=== PATIENT | female | born 1980 | race Caucasian/White ===

== ENCOUNTER 2016-09-06 17:48 | Emergency (ER) | payer MEDICAID, OTHER ==
[2016-09-06] MEDS ORDERED: Ketorolac INJ* 30 MG/ML 1 ML VIAL IV PUSH ONE (18:22)
[2016-09-06] MEDS ORDERED: Dexamethasone IV* 4 MG/ML 1 ML (4 MG) IV SLOW PU ONE (18:23)
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
--- NOTE | 2016-09-06 18:52 | RAD ---
INDICATION: Left flank pain COMPARISON: Renal stone CT November 03, 2014 TECHNIQUE: Noncontrast axial source images were acquired from the level hemidiaphragms to the symphysis pubis as part of CT imaging for renal stone. Lung bases: The lung bases are clear. Liver: The liver is normal in size. Noncontrast imaging shows no evidence of a new hepatic mass or ductal dilatation. There is decreased attenuation near the falciform ligament appearing unchanged and most consistent with focal fatty infiltration. Gallbladder: There are no calcified gallstones. There is no evidence of wall thickening or pericholecystic fluid.. Spleen: The spleen is normal in size. The noncontrast CT appearance is normal. Pancreas: Noncontrast imaging shows no pancreatic mass or ductal dilitation. Adrenal glands: No masses are identified. Kidneys/Bladder: There are nonobstructive lower pole right renal calculi appearing unchanged. There are no additional calculi of urinary significance. Adenopathy: There is no evidence of intraperitoneal or retroperitoneal adenopathy. Evaluation is limited without oral contrast. Fluid collections: There are no free or localized fluid collections. Vessels: The aorta and iliac vessels are normal in caliber. There are no significant atherosclerotic changes. The IVC appears normal Pelvic organs: The uterus is unremarkable. No adnexal mass. The right uterine clip appears unchanged. The left uterine clip is now in the lower right pelvis. GI tract: Evaluation of the bowel is limited without oral contrast. The stomach, small bowel, and lower GI tract appear grossly normal. There are no obstructive findings. The appendix is visualized and appears normal. Soft tissues: No soft tissue abnormalities of the extraperitoneal abdomen or pelvis are identified. Osseous structures: There are no acute osseous findings. IMPRESSION: 1. Suspected focal fatty infiltration. A segment left hepatic lobe, unchanged. 2. No obstructive right-sided nephrolithiasis, unchanged 3. The left uterine clip appears to have migrated as it is now positioned in the caudal right pelvis. Findings called to the ED
[2016-09-06 19:45] LABS: Hematocrit 43 % (35-47); Hemoglobin 14.4 g/dl (12.0-16.0); Mean Corpuscular HGB Conc 34 g/dl (31-36); Mean Corpuscular Hemoglobin 30 pg (27-31); Mean Corpuscular Volume 91 fL (80-97); Mean Platelet Volume 8 um3 (7.4-10.4); Red Blood Count 4.74 10^6/ul (4.0-5.4); Red Cell Distribution Width 13 % (10.5-15); White Blood Count 9.5 10^3/ul (3.5-10.8)
[2016-09-06] MEDS ORDERED: predniSONE TAB* 5 MG PO ONE (19:57)
[2016-09-06 20:00] LABS: Albumin 4.8 g/dL (3.2-5.2); BUN/Creatinine Ratio 11.7 (8-20); EGFR African American 145.5 (>60); EGFR Non-African American 113.1 (>60); Globulin 3.3 g/dL (2-4); Potassium 3.6 mmol/L (3.5-5.0); Total Bilirubin 0.5 mg/dL (0.2-1.0); Total Protein 8.1 g/dL (6.4-8.9)
[2016-09-06] MEDS ORDERED: predniSONE TAB* 20 MG PO ONE (20:06)
[2016-09-06] MEDS ORDERED: Ibuprofen TAB* 600 MG PO ONE (20:06)
[2016-09-06 20:16] VITALS: BP 126/69
== END 2016-09-06 20:20 | disposition home or self-care (01) ==
LOC: ED 17:48
DX: J02.0 Streptococcal pharyngitis (principal); R07.0 Pain in throat; R13.10 Dysphagia, unspecified; F17.210 Nicotine dependence, cigarettes, uncomplicated; R53.1 Weakness; R50.9 Fever, unspecified
CPT/HCPCS: 36415; 74176; 80053; 85025; 87651; 99282; A9270-GY; J1100; J1885; J7512

== ENCOUNTER 2016-09-20 11:31 | Emergency (ER) | payer OTHER ==
[2016-09-20 11:54] VITALS: BP 108/56
[2016-09-20] MEDS ORDERED: Ketorolac INJ* 60 MG/2 ML VIAL IM ONE (12:22)
--- NOTE | 2016-09-20 13:13 | RAD ---
INDICATION: Sort throat. COMPARISON: There are no prior studies available for comparison. TECHNIQUE: A CT scan of the neck was performed without intravenous contrast. Contiguous axial sections were obtained from the skull base through the lung apices. Images were reconstructed in the coronal and sagittal planes. The study is limited without contrast. FINDINGS: The airway appears patent. No retropharyngeal soft tissue swelling is present. There is mild thickening of the epiglottis and aryepiglottic folds and mild swelling around the piriform sinuses. The tonsillar fossas appear within normal limits. No fluid collection or abscess is seen. No significant enlarged nodes are seen. The parotid and submandibular glands appear to be within normal limits. The thyroid gland appears normal. The lung apices appear clear. There are a couple small cysts present. The visualized portion of the paranasal sinuses and mastoid air cells appear clear. No significant focal osseous abnormality is seen. The results of this exam were discussed with the clinician. IMPRESSION: MILD SWELLING IN THE EPIGLOTTIS AND ARYEPIGLOTTIC FOLDS CONSISTENT WITH EPIGLOTTITIS.
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
[2016-09-20 13:33] LABS: Mono Internal Control QC Line Present
[2016-09-20 13:34] LABS: Manual Entry Verification JEA0012
[2016-09-20] MEDS ORDERED: Dexamethasone IV* 4 MG/ML 1 ML (4 MG) IV SLOW PU ONE (13:46)
[2016-09-20] MEDS ORDERED: cefTRIAXone VIAL(*) 1,000 MG VIAL IVPB ONE (13:47)
== END 2016-09-20 15:00 | disposition home or self-care (01) ==
LOC: ED 11:31
DX: J02.9 Acute pharyngitis, unspecified (principal)
CPT/HCPCS: 36415; 70490; 83605; 86308; 87651; 96372; 99282; J0696; J1100; J1885

== ENCOUNTER 2016-11-07 03:34 | Emergency (ER) | payer OTHER ==
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
[2016-11-07 05:45] VITALS: BP 106/63
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
== END 2016-11-07 05:40 | disposition home or self-care (01) ==
LOC: ED 03:34
DX: S00.83XA Contusion of other part of head, initial encounter (principal); S80.212A Abrasion, left knee, initial encounter; S80.211A Abrasion, right knee, initial encounter; Y00.XXXA Assault by blunt object, initial encounter; Y93.9 Activity, unspecified; Y92.9 Unspecified place or not applicable; Z88.5 Allergy status to narcotic agent; Z87.442 Personal history of urinary calculi; F41.9 Anxiety disorder, unspecified; F32.9 Major depressive disorder, single episode, unspecified; F17.210 Nicotine dependence, cigarettes, uncomplicated
CPT/HCPCS: 70486; 99282

== ENCOUNTER 2016-12-23 19:06 | Emergency (ER) | payer OTHER ==
[2016-12-23 19:22] VITALS: BP 109/51
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
--- NOTE | 2016-12-23 22:17 | ED ---
Upper Extremity Pain - History of Current Complaint Chief Complaint: EDExtremityUpper Stated Complaint: RT HAND INJURY Time Seen by Provider: 12/23/16 20:06 Hx Last Menstrual Period: 02/09 - Allergies/Home Medications Allergies/Adverse Reactions: Allergies Allergy/AdvReac Type Severity Reaction Status Date / Time Morphine Allergy Severe Swelling Verified 02/15/16 12:33 Propoxyphene Allergy Severe Rash And Verified 02/15/16 12:33 [From Darvocet-N] Itching Hydromorphone [From Dilaudid] Allergy swelling Verified 02/15/16 12:33 at iv site PMH/Surg Hx/FS Hx/Imm Hx Endocrine/Hematology History: Denies: Hx Anticoagulant Therapy, Hx Diabetes, Hx Thyroid Disease, Other Endocrine/Hematological Disorders Cardiovascular History: Reports: Other Cardiovascular Problems/Disorders - heart murmur as a child. Denies: Hx Hypertension Respiratory History: Reports: Other Respiratory Problems/Disorders - pleurisy Denies: Hx Asthma, Hx Chronic Obstructive Pulmonary Disease (COPD) GI History: Denies: Hx Ulcer, Other GI Disorders History: Reports: Hx Kidney Stones, Hx Renal Disease, Other Problems/ Disorders - Renal stents Musculoskeletal History: Reports: Hx Back Problems - reports pain in back along spine due to cysts Denies: Other Musculoskeletal History Sensory History: Reports: Hx Contacts or Glasses Denies: Other Sensory Impairments Opthamlomology History: Reports: Hx Contacts or Glasses Denies: Other Sensory Impairments Neurological History: Reports: Hx Migraine Denies: Hx Dementia, Other Neuro Impairments/Disorders Psychiatric History: Reports: Hx Anxiety, Hx Depression, Hx Community Mental Health Tx, Hx Bipolar Disorder, Hx of Violent Episodes Against Others, Hx Substance Abuse - amphetamine (crystal meth) Denies: Hx Eating Disorder, Other Psychiatric Issues/Disorders - Cancer History Cancer Type, Location and Year: n/a - Surgical History Surgery Procedure, Year, and Place: Kidney Stone surg; dermoid cysyt. [place] [facility] 09/2013. Tubal Ligation. Multiple Teeth Extracted Hx Anesthesia Reactions: No Infectious Disease History: No Infectious Disease History: Denies: Hx Hepatitis, Hx Human Immunodeficiency Virus (HIV), History Other Infectious Disease, Traveled Outside the [place] in Last 30 Days - Family History Known Family History: Positive: Cardiac Disease - Paternal grandfather with heart attacks (paternal), at 63, Hypertension, Diabetes, Other - CVA, hyperlipidemia Family History: Anxiety, bipolar d/o, depression - Social History Alcohol Use: Occasionally Hx Substance Use: No Substance Use Type: Reports: None Substance Use Comment - Amount & Last Used: over a month no drug use Hx Tobacco Use: Yes Smoking Status (MU): Heavy Every Day Tobacco Smoker Type: Cigarettes Amount Used/How Often: 1/2 ppd Length of Time of Smoking/Using Tobacco: 19 YEARS Have You Smoked in the Last Year: Yes Physical Exam Vital Signs On Initial Exam: Initial Vitals Temp Pulse Resp BP Pulse Ox 97.6 F 78 16 109/51 100 12/23/16 19:19 12/23/16 19:19 12/23/16 19:19 12/23/16 19:19 12/23/16 19:19 Diagnostics - Vital Signs Vital Signs Temp Pulse Resp BP Pulse Ox 12/23/16 19:19 97.6 F 78 16 109/51 100 - Laboratory Lab Statement: Any lab studies that have been ordered have been reviewed, and results considered in the medical decision making process. - Radiology right hand Xray Interpretation: Positive (See Comments) - Acute fracture at the distal diaphysis through distal metaphysis of the fifth metacarpal with predominant apex dorsal angulation. Radiology Interpretation Completed By: Radiologist
[2016-12-23] MEDS ORDERED: Ibuprofen TAB* 600 MG PO ONE (22:40)
== END 2016-12-23 22:47 | disposition left against medical advice (07) ==
LOC: ED 19:06
DX: S69.91XA Unspecified injury of right wrist, hand and finger(s), initial encounter (principal); X58.XXXA Exposure to other specified factors, initial encounter; Y92.9 Unspecified place or not applicable; Z53.21 Procedure and treatment not carried out due to patient leaving prior to being seen by health care provider
CPT/HCPCS: 99282

== ENCOUNTER 2017-01-09 11:27 | Emergency (ER) | payer OTHER ==
[2017-01-09 11:31] VITALS: BP 107/53
--- NOTE | 2017-01-11 12:31 | ED ---
Edward Mitchell Nilda, scribed for Ousmane Nickerson MD on 01/09/17 at 1204 . Respiratory - HPI Summary HPI Summary: This patient is a 36 year old F presenting to [facility] accompanied by boyfriend with a chief complaint of productive cough (white) since 2 days ago. The patient rates the pain 7/10 in severity. Symptoms aggravated deep breaths and alleviated by nothing. Patient reports fever, swollen throat, back pain (from cough), chills, wheezing, and SOB. PMHx includes bronchitis, pleurisy, and COPD. Patient is currently not on ibuprofen or respiratory medication. - History of Current Complaint Chief Complaint: EDUpperRespComplaint Stated Complaint: CONGESTED/COUGH/FEVER/WEAKNESS Time Seen by Provider: 01/09/17 11:44 Hx Obtained From: Patient Current Severity: Severe Pain Intensity: 7 Character: Wheezing, Cough (Productive) Sputum Amount: Moderate Sputum Color: White Aggravating Factor(s): Deep Breaths Alleviating Factor(s): Nothing Associated Signs and Symptoms: SOB - Allergy/Home Medications Allergies/Adverse Reactions: Allergies Allergy/AdvReac Type Severity Reaction Status Date / Time Morphine Allergy Severe Swelling Verified 02/15/16 12:33 Propoxyphene Allergy Severe Rash And Verified 02/15/16 12:33 [From Darvocet-N] Itching Hydromorphone [From Dilaudid] Allergy swelling Verified 02/15/16 12:33 at iv site PMH/Surg Hx/FS Hx/Imm Hx Endocrine/Hematology History: Denies: Hx Anticoagulant Therapy, Hx Diabetes, Hx Thyroid Disease, Other Endocrine/Hematological Disorders Cardiovascular History: Reports: Other Cardiovascular Problems/Disorders - heart murmur as a child. Denies: Hx Hypertension Respiratory History: Reports: Other Respiratory Problems/Disorders - pleurisy Denies: Hx Asthma, Hx Chronic Obstructive Pulmonary Disease (COPD) GI History: Denies: Hx Ulcer, Other GI Disorders History: Reports: Hx Kidney Stones, Hx Renal Disease, Other Problems/ Disorders - Renal stents Musculoskeletal History: Reports: Hx Back Problems - reports pain in back along spine due to cysts Denies: Other Musculoskeletal History Sensory History: Reports: Hx Contacts or Glasses Denies: Other Sensory Impairments Opthamlomology History: Reports: Hx Contacts or Glasses Denies: Other Sensory Impairments Neurological History: Reports: Hx Migraine Denies: Hx Dementia, Other Neuro Impairments/Disorders Psychiatric History: Reports: Hx Anxiety, Hx Depression, Hx Community Mental Health Tx, Hx Bipolar Disorder, Hx of Violent Episodes Against Others, Hx Substance Abuse - amphetamine (crystal meth) Denies: Hx Eating Disorder, Other Psychiatric Issues/Disorders - Cancer History Cancer Type, Location and Year: n/a - Surgical History Surgery Procedure, Year, and Place: Kidney Stone surg; dermoid cysyt. [place] [facility] 09/2013. Tubal Ligation. Multiple Teeth Extracted Hx Anesthesia Reactions: No Infectious Disease History: No Infectious Disease History: Denies: Hx Hepatitis, Hx Human Immunodeficiency Virus (HIV), History Other Infectious Disease, Traveled Outside the [place] in Last 30 Days - Family History Known Family History: Positive: Cardiac Disease - Paternal grandfather with heart attacks (paternal), at 63, Hypertension, Diabetes, Other - CVA, hyperlipidemia Family History: Anxiety, bipolar d/o, depression - Social History Alcohol Use: Occasionally Hx Substance Use: No Substance Use Type: Reports: None Substance Use Comment - Amount & Last Used: over a month no drug use Hx Tobacco Use: Yes Smoking Status (MU): Heavy Every Day Tobacco Smoker Type: Cigarettes Amount Used/How Often: 1/2 ppd Length of Time of Smoking/Using Tobacco: 19 YEARS Have You Smoked in the Last Year: Yes Review of Systems Positive: Fever, Chills Negative: Erythema Positive: Other - swollen throat. Negative: Sore Throat Negative: Chest Pain Positive: Shortness Of Breath, Cough, Other - wheezing Negative: Abdominal Pain, Vomiting, Nausea Negative: dysuria, hematuria Positive: Other - back pain (from cough). Negative: Myalgia, Edema Negative: Rash Neurological: Other - negative dizziness All Other Systems Reviewed And Are Negative: Yes Physical Exam - Summary Physical Exam Summary: Constitutional: Well-developed, Well-nourished, Alert. (-) Distressed Skin: Warm, Dry HENT: Normocephalic; Atraumatic Eyes: Conjunctiva normal Neck: Musculoskeletal ROM normal neck. (-) JVD, (-) Stridor, (-) Tracheal deviation Cardio: Rhythm regular, rate normal, Heart sounds normal; Intact distal pulses; The pedal pulses are 2+ and symmetric. Radial pulses are 2+ and symmetric. (-) Murmur Pulmonary/Chest wall: Diminished breath sounds, (-) Wheezes, (-) Rales Abd: Soft, (-) Tenderness, (-) Distension, (-) Guarding, (-) Rebound Musculoskeletal: (-) Edema Lymph: (-) Cervical adenopathy Neuro: Alert, Oriented x3 Psych: Mood and affect Normal Triage Information Reviewed: Yes Vital Signs On Initial Exam: Initial Vitals Temp Pulse Resp BP Pulse Ox 97.1 F 84 20 107/53 99 01/09/17 11:29 01/09/17 11:29 01/09/17 11:29 01/09/17 11:29 01/09/17 11:29 Vital Signs Reviewed: Yes Diagnostics - Vital Signs Vital Signs Temp Pulse Resp BP Pulse Ox 01/09/17 11:29 97.1 F 84 20 107/53 99 - Laboratory Lab Statement: Any lab studies that have been ordered have been reviewed, and results considered in the medical decision making process. Disposition - Course Course Of Treatment: This patient is a 36 year old F presenting to [facility] accompanied by boyfriend with a chief complaint of productive cough (white) since 2 days ago. The patient rates the pain 7/10 in severity. Symptoms aggravated deep breaths and alleviated by nothing. Patient reports fever, swollen throat, back pain (from cough), chills, wheezing, and SOB. PMHx includes bronchitis, pleurisy, and COPD. Patient is currently not on ibuprofen or respiratory medication. Patient will be discharged with a diagnosis of bronchitis and a prescription for albuterol and doxycycline and a follow up from PCP in 2-3 days. The patient is agreeable with this plan. - Diagnoses Provider Diagnoses: Bronchitis Discharge - Discharge Plan Condition: Stable Disposition: HOME Prescriptions: Albuterol HFA INHALER* [Ventolin HFA Inhaler*] 1 - 2 puff INH Q4H PRN #1 mdi PRN Reason: Cough DOXYcycline CAP(*) [DOXYcycline 100MG CAP(*)] 100 mg PO BID #10 cap predniSONE TAB* [Deltasone TAB*] 40 mg PO DAILY #5 tab Patient Education Materials: Acute Bronchitis (ED) Referrals: Oni Martínez MD [Primary Care Provider] - 3 Days Additional Instructions: RETURN TO THE EMERGENCY DEPARTMENT FOR CHANGING OR WORSENING SYMPTOMS. The documentation as recorded by the Edward rodas Nilda accurately reflects the service I personally performed and the decisions made by Krishan alcala Jerry, MD.
== END 2017-01-09 12:16 | disposition home or self-care (01) ==
LOC: ED 11:27
DX: J40 Bronchitis, not specified as acute or chronic (principal); F17.210 Nicotine dependence, cigarettes, uncomplicated; J44.9 Chronic obstructive pulmonary disease, unspecified; Z88.5 Allergy status to narcotic agent

== ENCOUNTER 2017-04-21 16:25 | Emergency (ER) | payer OTHER ==
[2017-04-21 17:29] LABS: ABS Basophils 0 10^3/ul (0-0.2); ABS Eosinophils 0.1 10^3/ul (0-0.6); ABS Lymphocytes 1.9 10^3/ul (1.0-4.8); ABS Monocytes 0.4 10^3/ul (0-0.8); ABS Neutrophils 6.8 10^3/ul (1.5-7.7); ABS Nucleated RBC 0 10^3/ul; Hematocrit 42 % (35-47); Hemoglobin 14.4 g/dl (12.0-16.0); Lymphocyte % 20.8 % (25-47); Mean Corpuscular HGB Conc 34 g/dl (31-36); Mean Corpuscular Hemoglobin 31 pg (27-31); Mean Corpuscular Volume 92 fL (80-97); Mean Platelet Volume 7 um3 (7.4-10.4); Nucleated Red Blood Cells % 0; Platelet Count 285 10^3/ul (150-450); Red Blood Count 4.59 10^6/ul (4.0-5.4); Red Cell Distribution Width 14 % (10.5-15); White Blood Count 9.3 10^3/ul (3.5-10.8)
[2017-04-21 17:45] LABS: INR 0.94 (0.77-1.02)
[2017-04-21 17:46] LABS: Urine Appearance Clear; Urine Blood 2+ (Negative); Urine Color Yellow; Urine Ketones Negative (Negative); Urine Protein Negative (Negative); Urine Urobilinogen Negative (Negative)
[2017-04-21 17:52] LABS: EGFR Non-African American 113.1 (>60)
[2017-04-21 19:37] VITALS: BP 104/48
--- NOTE | 2017-04-22 02:41 | ED ---
Leigha Mitchell Julia, scribed for Kelsi Valdivia MD on 04/21/17 at 1846 . Complex/Multi-Sys Presentation - HPI Summary HPI Summary: This patient is a 36 year old F BIBA to [facility] accompanied by her sister with a chief complaint of LLQ abdominal pain characterized as a quick poke. Patient is concerned for ectopic because she had tubal litigation about 7 years ago; one clip came off. Patient reports L shoulder pain due to stress, vaginal bleeding with a big clot (currently wearing tampon), and vomiting for past three days. Patient denies fever, dysuria, pain or swelling in legs. Patient believes she is because her belly is getting bigger, she feels something moving , and has increased appetite. She is unsure but suspect he LNMP was the first week of February 2017 and has reproductive hx of /a1. She reports pain is not similar to previous kidney stones. States she has done two home tests that are negative but still feels like she could be because the one clip from her tubal ligation "came off" and migrated to her right lower abdomen. Pt states she wants to be . - History Of Current Complaint Chief Complaint: EDAbdPain Time Seen by Provider: 04/21/17 16:47 Hx Obtained From: Patient Onset/Duration: Gradual Onset, Lasting Weeks Timing: Constant Severity Currently: Moderate Severity Initially: Mild Location: Pain At: - LLQ abdomen Character: Sharp - "quick poke" Aggravating Factor(s): nothing Alleviating Factor(s): nothing Associated Signs And Symptoms: Positive: Vomiting, Other - reports L shoulder pain due to "stress", vaginal bleeding with a big clot (currently wearing tampon), vomiting for past three days - Allergies/Home Medications Allergies/Adverse Reactions: Allergies Allergy/AdvReac Type Severity Reaction Status Date / Time Morphine Allergy Severe Swelling Verified 04/21/17 16:50 Propoxyphene Allergy Severe Rash And Verified 04/21/17 16:50 [From Darvocet-N] Itching Hydromorphone [From Dilaudid] Allergy swelling Verified 04/21/17 16:50 at iv site PMH/Surg Hx/FS Hx/Imm Hx Endocrine/Hematology History: Denies: Hx Anticoagulant Therapy, Hx Diabetes, Hx Thyroid Disease, Other Endocrine/Hematological Disorders Cardiovascular History: Reports: Other Cardiovascular Problems/Disorders - heart murmur as a child. Denies: Hx Hypertension Respiratory History: Reports: Hx Chronic Obstructive Pulmonary Disease (COPD), Other Respiratory Problems/Disorders - pleurisy Denies: Hx Asthma GI History: Denies: Hx Ulcer, Other GI Disorders History: Reports: Hx Kidney Stones, Hx Renal Disease, Other Problems/ Disorders - Renal stents, dermoid cysts Musculoskeletal History: Reports: Hx Back Problems Denies: Other Musculoskeletal History Sensory History: Reports: Hx Contacts or Glasses Denies: Other Sensory Impairments Opthamlomology History: Reports: Hx Contacts or Glasses Denies: Other Sensory Impairments Neurological History: Reports: Hx Migraine Denies: Hx Dementia, Other Neuro Impairments/Disorders Psychiatric History: Reports: Hx Anxiety, Hx Depression, Hx Community Mental Health Tx, Hx Bipolar Disorder, Hx of Violent Episodes Against Others, Hx Substance Abuse - amphetamine (crystal meth) Denies: Hx Eating Disorder, Other Psychiatric Issues/Disorders - Cancer History Cancer Type, Location and Year: n/a - Surgical History Surgery Procedure, Year, and Place: Kidney Stone surg; dermoid cysyt. [place] [facility] 09/2013. Tubal Ligation. Multiple Teeth Extracted Hx Anesthesia Reactions: No Infectious Disease History: No Infectious Disease History: Denies: Hx Hepatitis, Hx Human Immunodeficiency Virus (HIV), History Other Infectious Disease, Traveled Outside the [place] in Last 30 Days - Family History Known Family History: Positive: Cardiac Disease - Paternal grandfather with heart attacks (paternal), at 63, Hypertension, Diabetes, Renal Disease, Other - CVA, hyperlipidemia, [place] Family History: Anxiety, bipolar d/o, depression - Social History Lives: With Family Alcohol Use: Occasionally Hx Substance Use: No Substance Use Type: Reports: None Substance Use Comment - Amount & Last Used: over a month no drug use Hx Tobacco Use: Yes Smoking Status (MU): Heavy Every Day Tobacco Smoker Type: Cigarettes Amount Used/How Often: 1/2 ppd Length of Time of Smoking/Using Tobacco: 19 YEARS Have You Smoked in the Last Year: Yes Review of Systems Negative: Fever Cardiovascular: Negative Respiratory: Negative Positive: Abdominal Pain, Vomiting Positive: other - vaginal bleeding. Negative: dysuria Musculoskeletal: Other - L shoulder pain Positive: Other - negative - leg pain. Negative: Edema Skin: Negative Neurological: Negative Psychological: Normal All Other Systems Reviewed And Are Negative: Yes Physical Exam - Summary Physical Exam Summary: Appearance: Ill-appearing, moderate pain distress, Well-nourished Skin: Warm, color reflects adequate perfusion Head: Normal Head/Face inspection Eyes: Conjunctiva clear ENT: Normal inspection Neck: Supple, no nodes, no JVD. Respiratory: Lungs clear, Normal breath sounds, no respiratory distress Cardio: RRR, No murmur, pulses normal, brisk capillary refill Abdomen: soft, minimal LLQ tenderness Bowel sounds: present Pelvic: external genitalia normal, mod amount blood in vagina, consistent with menstrual bleeding, cervix long and closed, uterus normal size, nontender, adnexae no masses non tender. Musculoskeletal: Strength Intact/ ROM intact. No calf tenderness. No edema. Neuro: Alert, muscle tone normal, facial symmetry, speech normal, sensory/motor intact Psychological: Normal Triage Information Reviewed: Yes Vital Signs On Initial Exam: Initial Vitals Temp Pulse Resp BP Pulse Ox 98.5 F 95 12 109/52 97 04/21/17 16:27 04/21/17 16:27 04/21/17 16:27 04/21/17 16:27 04/21/17 16:27 Vital Signs Reviewed: Yes - [place] Coma Scale Coma Scale Total: 15 Diagnostics - Vital Signs Vital Signs Temp Pulse Resp BP Pulse Ox 04/21/17 18:37 109/48 04/21/17 18:33 84 96 04/21/17 18:30 80 106/61 98 04/21/17 18:00 79 104/59 98 04/21/17 17:30 81 113/58 98 04/21/17 17:21 104/74 04/21/17 17:00 88 99 04/21/17 16:35 96 98 04/21/17 16:33 109/52 04/21/17 16:27 98.5 F 95 12 109/52 97 - Laboratory Lab Results: Lab Results 04/21/17 04/21/17 04/21/17 Range/Units 17:15 17:15 17:15 WBC 9.3 (3.5-10.8) 10^3/ul RBC 4.59 (4.0-5.4) 10^6/ul Hgb 14.4 (12.0-16.0) g/dl Hct 42 (35-47) % MCV 92 (80-97) fL MCH 31 (27-31) pg MCHC 34 (31-36) g/dl RDW 14 (10.5-15) % Plt Count 285 (150-450) 10^3/ul MPV 7 L (7.4-10.4) um3 Neut % (Auto) 72.9 (38-83) % Lymph % (Auto) 20.8 L (25-47) % [place] % (Auto) 4.8 (1-9) % Eos % (Auto) 1.0 (0-6) % Baso % (Auto) 0.5 (0-2) % Absolute Neuts (auto) 6.8 (1.5-7.7) 10^3/ul Absolute Lymphs (auto) 1.9 (1.0-4.8) 10^3/ul Absolute Monos (auto) 0.4 (0-0.8) 10^3/ul Absolute Eos (auto) 0.1 (0-0.6) 10^3/ul Absolute Basos (auto) 0 (0-0.2) 10^3/ul Absolute Nucleated RBC 0 10^3/ul Nucleated RBC % 0 INR (Anticoag Therapy) 0.94 (0.77-1.02) Sodium 139 (133-145) mmol/L Potassium 4.1 (3.5-5.0) mmol/L Chloride 108 (101-111) mmol/L Carbon Dioxide 25 (22-32) mmol/L Anion Gap 6 (2-11) mmol/L BUN 9 (6-24) mg/dL Creatinine 0.60 (0.51-0.95) mg/dL Est GFR ( Amer) 145.5 (>60) Est GFR (Non-Af Amer) 113.1 (>60) BUN/Creatinine Ratio 15.0 (8-20) Glucose 92 (70-100) mg/dL Lactic Acid (0.5-2.0) mmol/L Calcium 9.5 (8.6-10.3) mg/dL Magnesium 1.9 (1.9-2.7) mg/dL Total Bilirubin 0.40 (0.2-1.0) mg/dL AST 12 L (13-39) U/L ALT 11 (7-52) U/L Alkaline Phosphatase 65 (34-104) U/L Total Creatine Kinase 37 (10-223) U/L C-Reactive Protein 1.18 (< 5.00) mg/L Total Protein 7.0 (6.4-8.9) g/dL Albumin 4.3 (3.2-5.2) g/dL Globulin 2.7 (2-4) g/dL Albumin/Globulin Ratio 1.6 (1-3) Amylase 50 (29-103) U/L Lipase < 10 L (11.0-82.0) U/L Beta HCG, Quant < 0.60 mIU/mL Urine Color Urine Appearance Urine pH (5-9) Ur Specific [place] (1.010-1.030) Urine Protein (Negative) Urine Ketones (Negative) Urine Blood (Negative) Urine Nitrate (Negative) Urine Bilirubin (Negative) Urine Urobilinogen (Negative) Ur Leukocyte Esterase (Negative) Urine WBC (Auto) (Absent) Urine RBC (Auto) (Absent) Ur Squamous Epith Cells (Absent) Urine Bacteria (Absent) Urine Glucose (Negative) 04/21/17 04/21/17 Range/Units 17:15 17:15 WBC (3.5-10.8) 10^3/ul RBC (4.0-5.4) 10^6/ul Hgb (12.0-16.0) g/dl Hct (35-47) % MCV (80-97) fL MCH (27-31) pg MCHC (31-36) g/dl RDW (10.5-15) % Plt Count (150-450) 10^3/ul MPV (7.4-10.4) um3 Neut % (Auto) (38-83) % Lymph % (Auto) (25-47) % [place] % (Auto) (1-9) % Eos % (Auto) (0-6) % Baso % (Auto) (0-2) % Absolute Neuts (auto) (1.5-7.7) 10^3/ul Absolute Lymphs (auto) (1.0-4.8) 10^3/ul Absolute Monos (auto) (0-0.8) 10^3/ul Absolute Eos (auto) (0-0.6) 10^3/ul Absolute Basos (auto) (0-0.2) 10^3/ul Absolute Nucleated RBC 10^3/ul Nucleated RBC % INR (Anticoag Therapy) (0.77-1.02) Sodium (133-145) mmol/L Potassium (3.5-5.0) mmol/L Chloride (101-111) mmol/L Carbon Dioxide (22-32) mmol/L Anion Gap (2-11) mmol/L BUN (6-24) mg/dL Creatinine (0.51-0.95) mg/dL Est GFR ( Amer) (>60) Est GFR (Non-Af Amer) (>60) BUN/Creatinine Ratio (8-20) Glucose (70-100) mg/dL Lactic Acid 0.8 (0.5-2.0) mmol/L Calcium (8.6-10.3) mg/dL Magnesium (1.9-2.7) mg/dL Total Bilirubin (0.2-1.0) mg/dL AST (13-39) U/L ALT (7-52) U/L Alkaline Phosphatase (34-104) U/L Total Creatine Kinase (10-223) U/L C-Reactive Protein (< 5.00) mg/L Total Protein (6.4-8.9) g/dL Albumin (3.2-5.2) g/dL Globulin (2-4) g/dL Albumin/Globulin Ratio (1-3) Amylase (29-103) U/L Lipase (11.0-82.0) U/L Beta HCG, Quant mIU/mL Urine Color Yellow Urine Appearance Clear Urine pH 6.0 (5-9) Ur Specific [place] 1.010 (1.010-1.030) Urine Protein Negative (Negative) Urine Ketones Negative (Negative) Urine Blood 2+ H (Negative) Urine Nitrate Negative (Negative) Urine Bilirubin Negative (Negative) Urine Urobilinogen Negative (Negative) Ur Leukocyte Esterase Negative (Negative) Urine WBC (Auto) Trace(0-5/hpf) (Absent) Urine RBC (Auto) Trace(0-2/hpf) (Absent) Ur Squamous Epith Cells Present H (Absent) Urine Bacteria Absent (Absent) Urine Glucose Negative (Negative) Result Diagrams: 04/21/17 17:15 04/21/17 17:15 Lab Statement: Any lab studies that have been ordered have been reviewed, and results considered in the medical decision making process. Re-Evaluation - Re-Evaluation First Eval Re-Evaluation Time: 19:15 - pt advised of lab results, including neg HCG. Change: Unchanged Complex Multi-Symp Course/Dx Course Of Treatment: Pt with LLQ abd pain, and concern for ectopic due to 2 months without menses and s/p tubal ligation with a clip that "came off ". Pt reports vag bleeding now, but feels like she is . Serum HCG is neg as well as other labs. Pelvic exam with blood c/w menses, and no other abnormality. Pelvic cultures sent. - Diagnoses Provider Diagnoses: LLQ abdominal pain, Dysfunctional uterine bleeding Discharge - Discharge Plan Condition: Stable Disposition: HOME Patient Education Materials: Dysfunctional Uterine Bleeding (ED), Pelvic Pain in Women (ED) Referrals: Oni Martínez MD [Primary Care Provider] - Mariely Louie MD [Medical Doctor] - 1 Week Additional Instructions: The serum test was negative today. Your other labs were also unremarkable. We have sent pelvic cultures. We will notify you if you need additional treatment based on these results. We have referred you to [facility] so that you can be evaluated for your irregular menses. If you still have concern that you may be , you should repeat a test in one week. Return to the ER if you have new or worsening symptoms. The documentation as recorded by the Leigha rodas Julia accurately reflects the service I personally performed and the decisions made by me, Kelsi Valdivia MD.
--- NOTE | 2017-04-23 17:36 | ED ---
Progress - Progress Note Progress Note: Pt's vaginal cx neg for candidiasis and + for BV. No tx initiated. Called pt to discuss results and advise tx however no answer - LMTC and will mail letter. isabela Bansal, priscila. Re-Evaluation - Re-Evaluation First Eval Re-Evaluation Time: 19:15 - pt advised of lab results, including neg HCG. Change: Unchanged Course/Dx - Course Course Of Treatment: Pt with LLQ abd pain, and concern for ectopic due to 2 months without menses and s/p tubal ligation with a clip that "came off ". Pt reports vag bleeding now, but feels like she is . Serum HCG is neg as well as other labs. Pelvic exam with blood c/w menses, and no other abnormality. Pelvic cultures sent. - Diagnoses Provider Diagnoses: LLQ abdominal pain, Dysfunctional uterine bleeding
== END 2017-04-21 19:39 | disposition home or self-care (01) ==
LOC: ED 16:25
DX: R10.32 Left lower quadrant pain (principal); N93.8 Other specified abnormal uterine and vaginal bleeding; F17.210 Nicotine dependence, cigarettes, uncomplicated; R11.10 Vomiting, unspecified; M25.512 Pain in left shoulder
CPT/HCPCS: 36415; 80053; 81003; 81015; 82150; 82550; 83605; 83690; 83735; 84702; 85025; 85610; 86140; 87480; 87510; 87661; 99283

== ENCOUNTER 2017-05-13 19:38 | Emergency (ER) | payer OTHER ==
[2017-05-13] MEDS ORDERED: Clindamycin CAP* 150 MG PO ONE (23:24)
[2017-05-13] MEDS ORDERED: oxyCODONE/Acetamin 5/325 MG* TAB PO ONE (23:25)
[2017-05-13 23:51] VITALS: BP 128/66
--- NOTE | 2017-05-13 23:58 | ED ---
Wil Mitchell Gabriel, scribed for Brian Ken MD on 05/13/17 at 2327 . Skin Complaint - HPI Summary HPI Summary: This patient is a 36 year old F presenting to [facility] with a chief complaint of a possible infection in her left hand since 05-12-17. The patient rates the pain 8/ 10 in severity and radiating up her left arm. Patient reports CP and fatigue. She states the needle came out of package so it was clean; the tattoo was done on 05-10-17. - History of Current Complaint Chief Complaint: EDChestPainROMI Time Seen by Provider: 05/13/17 22:25 Stated Complaint: POSSIBLE INFECTION ON LT HAND Hx Obtained From: Patient Hx Last Menstrual Period: 02/09 Onset/Duration: Started Days Ago - 1, Still Present Timing: Constant Onset Severity: Mild Current Severity: Severe Pain Intensity: 8 Pain Scale Used: 0-10 Numeric Skin Location: Hand - left Associated Signs & Symptoms: Negative - fever - Additional Pertinent History Primary Care Physician: PEDRO - Allergy/Home Medications Allergies/Adverse Reactions: Allergies Allergy/AdvReac Type Severity Reaction Status Date / Time MS Morphine [Morphine] Allergy Severe Swelling Verified 05/13/17 20:00 MS Propoxyphene Allergy Severe Rash And Verified 05/13/17 20:00 [From Darvocet-N] Itching MS Hydromorphone Allergy swelling Verified 05/13/17 20:00 [From Dilaudid] at iv site PMH/Surg Hx/FS Hx/Imm Hx Endocrine/Hematology History: Denies: Hx Anticoagulant Therapy, Hx Diabetes, Hx Thyroid Disease, Other Endocrine/Hematological Disorders Cardiovascular History: Reports: Other Cardiovascular Problems/Disorders - heart murmur as a child. Denies: Hx Hypertension Respiratory History: Reports: Hx Chronic Obstructive Pulmonary Disease (COPD), Other Respiratory Problems/Disorders - pleurisy Denies: Hx Asthma GI History: Denies: Hx Ulcer, Other GI Disorders History: Reports: Hx Kidney Stones, Hx Renal Disease, Other Problems/ Disorders - Renal stents, dermoid cysts Musculoskeletal History: Reports: Hx Back Problems Denies: Other Musculoskeletal History Sensory History: Reports: Hx Contacts or Glasses Denies: Other Sensory Impairments Opthamlomology History: Reports: Hx Contacts or Glasses Denies: Other Sensory Impairments Neurological History: Reports: Hx Migraine Denies: Hx Dementia, Other Neuro Impairments/Disorders Psychiatric History: Reports: Hx Anxiety, Hx Depression, Hx Community Mental Health Tx, Hx Bipolar Disorder, Hx of Violent Episodes Against Others, Hx Substance Abuse - amphetamine (crystal meth) Denies: Hx Eating Disorder, Other Psychiatric Issues/Disorders - Cancer History Cancer Type, Location and Year: n/a - Surgical History Surgery Procedure, Year, and Place: Kidney Stone surg; dermoid cysyt. [place] Teeth 09/2013. Tubal Ligation. Multiple Teeth Extracted Hx Anesthesia Reactions: No Infectious Disease History: No Infectious Disease History: Denies: Hx Hepatitis, Hx Human Immunodeficiency Virus (HIV), History Other Infectious Disease, Traveled Outside the [place] in Last 30 Days - Family History Known Family History: Positive: Cardiac Disease - Paternal grandfather with heart attacks (paternal), at 63, Hypertension, Diabetes, Renal Disease, Other - CVA, hyperlipidemia, [place] Family History: Anxiety, bipolar d/o, depression - Social History Alcohol Use: Occasionally Hx Substance Use: No Substance Use Type: Reports: None Substance Use Comment - Amount & Last Used: over a month no drug use Hx Tobacco Use: Yes Smoking Status (MU): Heavy Every Day Tobacco Smoker Type: Cigarettes Amount Used/How Often: 1/2 ppd Length of Time of Smoking/Using Tobacco: 19 YEARS Have You Smoked in the Last Year: Yes Review of Systems Positive: Fatigue. Negative: Fever Positive: Chest Pain Positive: Other - swelling at left hand All Other Systems Reviewed And Are Negative: Yes Physical Exam - Summary Physical Exam Summary: VITAL SIGNS: Reviewed. GENERAL: Patient is a well-developed and nourished female who is lying comfortable in the stretcher. Patient is not in any acute respiratory distress. HEAD AND FACE: No signs of trauma. No ecchymosis, hematomas or skull depressions. No sinus tenderness. EYES: PERRLA, EOMI x 2, No injected conjunctiva, no nystagmus. EARS: Hearing grossly intact. Ear canals and tympanic membranes are within normal limits. MOUTH: Oropharynx within normal limits. NECK: Supple, trachea is midline, no adenopathy, no JVD, no carotid bruit, no c- spine tenderness, neck with full ROM. CHEST: Symmetric, no tenderness at palpation LUNGS: Clear to auscultation bilaterally. No wheezing or crackles. CVS: Regular rate and rhythm, S1 and S2 present, no murmurs or gallops appreciated. ABDOMEN: Soft, non-tender. No signs of distention. No rebound no guarding, and no masses palpated. Bowel sounds are normal. EXTREMITIES: FROM in all major joints, no edema, no cyanosis or clubbing. NEURO: Alert and oriented x 3. No acute neurological deficits. Speech is normal and follows commands. SKIN: Dry and warm Triage Information Reviewed: Yes Vital Signs On Initial Exam: Initial Vitals Temp Pulse Resp BP Pulse Ox 98.0 F 84 18 134/60 99 05/13/17 19:57 05/13/17 19:57 05/13/17 19:57 05/13/17 19:57 05/13/17 19:57 Vital Signs Reviewed: Yes Diagnostics - Vital Signs Vital Signs Temp Pulse Resp BP Pulse Ox 05/13/17 19:57 98.0 F 84 18 134/60 99 - Laboratory Lab Statement: Any lab studies that have been ordered have been reviewed, and results considered in the medical decision making process. - EKG 1958 Cardiac Rate: NL EKG Rhythm: Sinus Rhythm - at 85 BPM EKG Interpretation: Normal axis. Normal interval. No ischemic changes Course/Dx - Course Assessment/Plan: This patient is a 36 year old F presenting to [facility] with a chief complaint of a possible infection in her left hand since 05-12-17. The patient rates the pain 8/10 in severity and radiating up her left arm. Patient reports CP and fatigue. She states the needle came out of package so it was clean; the tattoo was done on 05-10-17. An EKG reveals NSR. Dx Cellulitis of the left hand. In the ED course the patient was given Cleocin and Percocet. Patient will be discharged with prescription for Clindamycin and follow up from PCP. The patient is agreeable with this plan. - Diagnoses Provider Diagnoses: Cellulitis of left hand Discharge - Discharge Plan Condition: Stable Disposition: HOME Prescriptions: Clindamycin Cap(NF) [Clindamycin Cap 300 mg Cap(NF)] 300 mg PO Q6H #30 cap Ibuprofen TAB* [Motrin TAB* 600 MG] 600 mg PO Q6H PRN #30 tab PRN Reason: Pain Patient Education Materials: Clindamycin (By mouth), Ibuprofen (By mouth), Cellulitis (ED) Referrals: Oni Martínez MD [Primary Care Provider] - 2 Days Additional Instructions: Use a sling and elevate your hand as much as possible. RETURN TO EMERGENCY DEPARTMENT FOR ANY NEW OR WORSENING SYMPTOMS The documentation as recorded by the Wil rodas Gabriel accurately reflects the service I personally performed and the decisions made by me, Brian Ken MD.
== END 2017-05-13 23:49 | disposition home or self-care (01) ==
LOC: ED 19:38
DX: L03.114 Cellulitis of left upper limb (principal); F17.210 Nicotine dependence, cigarettes, uncomplicated; Z88.5 Allergy status to narcotic agent; J44.9 Chronic obstructive pulmonary disease, unspecified
CPT/HCPCS: 93005; A9270-GY

== ENCOUNTER 2017-06-24 10:44 | Emergency (ER) | payer OTHER ==
[2017-06-24 11:24] VITALS: BP 111/36
--- NOTE | 2017-06-24 12:22 | UC ---
Abdominal Pain Female HPI - HPI Summary HPI Summary: Patient urgent care today complains of right-sided crampy abdominal pain extends from right flank around to right abdomen in the right and left upper quadrant. denies nausea vomiting diarrhea does report foul-smelling stool but it's formed stool. Pt is concerned because her boyfriend is currently in the [facility] diagnosis gastritis but she doesn't know anything further. she states she also has kidney stones and it feels like it could be one of her kidney stones. - History of Current Complaint Chief Complaint: UCAbdominalPain Stated Complaint: ABDOMINAL PAIN Time Seen by Provider: 06/24/17 12:15 Hx Obtained From: Patient Hx Last Menstrual Period: 06/09/17 ?: No Onset/Duration: Sudden Onset, Lasting Days - 2, Still Present Timing: Constant Severity Initially: Severe Severity Currently: Severe Pain Intensity: 9 Pain Scale Used: 0-10 Numeric - Answers are anything Location: Discrete At: RUQ, Discrete At: RLQ Radiates: Yes Character: Cramping Aggravating Factor(s): Nothing Alleviating Factor(s): Nothing Associated Signs and Symptoms: Positive: Decreased Appetite Allergies/Adverse Reactions: Allergies Allergy/AdvReac Type Severity Reaction Status Date / Time hydromorphone [From Dilaudid] Allergy swelling Verified 06/24/17 11:25 at IV site morphine Allergy Swelling Verified 06/24/17 11:25 propoxyphene Allergy Rash And Verified 06/24/17 11:25 [From Darvocet-N] Itching PMH/Surg Hx/FS Hx/Imm Hx Previously Healthy: No Other History Of: Negative For: Anticoagulant Therapy - Surgical History Surgical History: Yes Surgery Procedure, Year, and Place: Kidney Stone surg; dermoid cysyt. [place] Teeth 09/2013. Tubal Ligation. Multiple Teeth Extracted - Family History Known Family History: Positive: Cardiac Disease - Paternal grandfather with heart attacks (paternal), at 63, Hypertension, Diabetes, Renal Disease, Other - CVA, hyperlipidemia, [place] Family History: Anxiety, bipolar d/o, depression - Social History Occupation: Unemployed Alcohol Use: Occasionally Substance Use Type: None Substance Use Comment - Amount & Last Used: over a month no drug use Smoking Status (MU): Heavy Every Day Tobacco Smoker Type: Cigarettes Amount Used/How Often: 1/2 ppd Length of Time of Smoking/Using Tobacco: 19 YEARS Have You Smoked in the Last Year: Yes Household Exposure Type: Cigarettes Cessation Counseling: Counseled 3+Min - 10 Min - Immunization History Most Recent Influenza Vaccination: Feb 2013 Most Recent Tetanus Shot: current Most Recent Pneumonia Vaccination: unsure Review of Systems Constitutional: Negative Skin: Negative Eyes: Negative ENT: Negative Respiratory: Negative Cardiovascular: Negative Gastrointestinal: Abdominal Pain Genitourinary: Negative Motor: Negative Neurovascular: Negative Musculoskeletal: Negative Neurological: Negative Psychological: Negative Is Patient Immunocompromised?: No All Other Systems Reviewed And Are Negative: Yes Physical Exam Triage Information Reviewed: Yes Appearance: Well-Appearing, No Pain Distress, Thin Vital Signs: Initial Vital Signs Temp 98.5 F 06/24/17 11:18 Pulse 80 06/24/17 11:18 Resp 18 06/24/17 11:18 BP 111/36 06/24/17 11:18 Pulse Ox 100 06/24/17 11:18 Vital Signs Reviewed: Yes Eye Exam: Normal Eyes: Positive: Conjunctiva Clear ENT Exam: Normal ENT: Positive: Normal ENT inspection, Hearing grossly normal, Pharynx normal, TMs normal, Uvula midline. Negative: Nasal congestion, Nasal drainage, Trismus , Muffled voice, Hoarse voice, Sinus tenderness Dental Exam: Normal Neck exam: Normal Neck: Positive: 1 Respiratory Exam: Normal Respiratory: Positive: Chest non-tender, Lungs clear, Normal breath sounds, No respiratory distress, No accessory muscle use Cardiovascular Exam: Normal Cardiovascular: Positive: RRR, No Murmur, Pulses Normal, Brisk Capillary Refill Abdominal Exam: Normal Abdomen Description: Positive: No Organomegaly, Soft, CVA Tenderness (R), Other : - right side pain upper and lower quad. Negative: Distended, Guarding Bowel Sounds: Positive: Present Musculoskeletal Exam: Normal Musculoskeletal: Positive: Strength Intact, ROM Intact, No Edema Neurological Exam: Normal Neurological: Positive: Alert, Muscle Tone Normal Psychological Exam: Normal Skin Exam: Normal Diagnostics - Laboratory Diagnostic Studies Completed/Ordered: CTK scan showed likely ovarian cysts no hydronephrosis calcifications were noted in both kidneys otherwise normal Abd Pain Female Course/Dx - Course Course Of Treatment: Rest increase fluids ibuprofen for pain simethicone for gas cramps follow with primary care provider to emergency department for acute changes or increase in pain - Differential Dx/Diagnosis Provider Diagnoses: Abdominal pain, ovarian cysts Discharge - Discharge Plan Condition: Stable Disposition: HOME Prescriptions: Ibuprofen TAB* [Motrin TAB* 600 MG] 600 mg PO Q6H PRN #40 tab PRN Reason: pain Patient Education Materials: Simethicone (By mouth), Ovarian Cyst (ED), Acute Abdominal Pain (ED) Referrals: Oni Martínez MD [Primary Care Provider] - 1 Week Additional Instructions: Please go to emergency department for increased pain any change in symptoms especially diarrhea bloody stool fevers chills fever or lightheadedness
--- NOTE | 2017-06-24 12:55 | RAD ---
Indication: Abdominal cramping. CT of the abdomen and pelvis was performed without oral or IV contrast administration. Coronal and sagittal reconstructed images were obtained. The lung bases demonstrate no pleural fluid, nodules or masses. Heart is of normal size without evidence of pericardial effusion. Liver is normal in size. No focal lesions or intrahepatic ductal dilatation is noted. The gallbladder demonstrates no calcified gallstones. No pericholecystic fluid or wall thickening is noted. Spleen is normal in size. No adrenal lesions are noted. The kidneys demonstrates no hydronephrosis of either kidney. Calcifications are noted in the mid to lower pole of the right kidney. Additional calcifications are noted in the left kidney. Vague areas of increased density is noted in the renal pyramids bilaterally. No evidence of obstructive uropathy is noted. No retroperitoneal lymphadenopathy is noted. No dilated small bowel are noted. CT of the pelvis demonstrates prominent sized uterus. Tubal ligation clips are noted. There is suggestion of bilateral ovarian cysts. No hernias are noted. No pelvic masses are noted. Urinary bladder is unremarkable. IMPRESSION: No abnormal masses or fluid collections are identified. Calcifications in the both kidneys without obstructive uropathy.
== END 2017-06-24 13:30 | disposition home or self-care (01) ==
LOC: UCEAST 10:44
DX: R10.11 Right upper quadrant pain (principal); R10.31 Right lower quadrant pain; N83.209 Unspecified ovarian cyst, unspecified side; Z32.02 Encounter for pregnancy test, result negative; Z87.442 Personal history of urinary calculi; Z88.5 Allergy status to narcotic agent; Z71.6 Tobacco abuse counseling; F17.210 Nicotine dependence, cigarettes, uncomplicated
CPT/HCPCS: 74176; 81003; 84702; 99212; G0463

== ENCOUNTER 2017-08-26 11:53 | Emergency (ER) | payer OTHER ==
[2017-08-26 12:03] VITALS: BP 101/35
--- NOTE | 2017-08-26 12:17 | ED ---
HPI Chest Pain - HPI Summary HPI Summary: 37F presents with chest pain for the past day. She has history of COPD, pleurisy, and bronchitis. She is a smoker. She admits to SOB. She also admits to occasionally palpations due to a heart murmur. She denies any cough or recent illness. The pain is burning/sharp pain located on the side lateral left chest. She states feels similar to her pleurisy pain but is in a different location. She states she tried deep breathing but it did not help. no change with position changes. no change with food. no rash. no fever. she states may have swelling in her lower legs but no pain. She states the pain is constant. She denies any abdominal pain, nausea or vomiting. She has a family history of cardiac disease. has not tried anything for her symptoms. She is not on any control. no recent travel. - History of Current Complaint Chief Complaint: UCChestPain Time Seen by Provider: 08/26/17 12:07 Hx Last Menstrual Period: 06/09/17 Pain Intensity: 7 - Additional Pertinent History Primary Care Physician: [id number] - Allergy/Home Medications Allergies/Adverse Reactions: Allergies Allergy/AdvReac Type Severity Reaction Status Date / Time hydromorphone [From Dilaudid] Allergy swelling Verified 08/26/17 12:03 at IV site morphine Allergy Swelling Verified 08/26/17 12:03 propoxyphene Allergy Rash And Verified 08/26/17 12:03 [From Darvocet-N] Itching PMH/Surg Hx/FS Hx/Imm Hx Endocrine/Hematology History: Denies: Hx Anticoagulant Therapy, Hx Diabetes, Hx Thyroid Disease, Other Endocrine/Hematological Disorders Cardiovascular History: Reports: Other Cardiovascular Problems/Disorders - heart murmur as a child. Denies: Hx Hypertension Respiratory History: Reports: Hx Chronic Obstructive Pulmonary Disease (COPD) - emphysema, Other Respiratory Problems/Disorders - pleurisy Denies: Hx Asthma GI History: Denies: Hx Ulcer, Other GI Disorders History: Reports: Hx Kidney Stones, Hx Renal Disease, Other Problems/ Disorders - Renal stents, dermoid cysts Musculoskeletal History: Reports: Hx Back Problems Denies: Other Musculoskeletal History Sensory History: Reports: Hx Contacts or Glasses Denies: Other Sensory Impairments Opthamlomology History: Reports: Hx Contacts or Glasses Denies: Other Sensory Impairments Neurological History: Reports: Hx Migraine Denies: Hx Dementia, Other Neuro Impairments/Disorders Psychiatric History: Reports: Hx Anxiety, Hx Depression, Hx Community Mental Health Tx, Hx Bipolar Disorder, Hx of Violent Episodes Against Others, Hx Substance Abuse - amphetamine (crystal meth) Denies: Hx Eating Disorder, Other Psychiatric Issues/Disorders - Cancer History Cancer Type, Location and Year: n/a - Surgical History Surgery Procedure, Year, and Place: Kidney Stone surg; dermoid cysyt. [place] Teeth 09/2013. Tubal Ligation. Multiple Teeth Extracted Hx Anesthesia Reactions: No Infectious Disease History: No Infectious Disease History: Denies: Hx Hepatitis, Hx Human Immunodeficiency Virus (HIV), History Other Infectious Disease, Traveled Outside the [place] in Last 30 Days - Family History Known Family History: Positive: Cardiac Disease - Paternal grandfather with heart attacks (paternal), at 63, Hypertension, Diabetes, Renal Disease, Other - CVA, hyperlipidemia, [place] Family History: Anxiety, bipolar d/o, depression - Social History Alcohol Use: Occasionally Hx Substance Use: No Substance Use Type: Reports: None Substance Use Comment - Amount & Last Used: over a month no drug use Hx Tobacco Use: Yes Smoking Status (MU): Heavy Every Day Tobacco Smoker Type: Cigarettes Amount Used/How Often: 1/2 ppd Length of Time of Smoking/Using Tobacco: 19 YEARS Have You Smoked in the Last Year: Yes Review of Systems Negative: Fever Positive: Palpitations, Chest Pain Positive: Shortness Of Breath. Negative: Cough All Other Systems Reviewed And Are Negative: Yes Physical Exam Triage Information Reviewed: Yes Vital Signs On Initial Exam: Initial Vitals Temp Pulse Resp BP Pulse Ox 97.7 F 67 18 101/35 100 08/26/17 12:00 08/26/17 12:00 08/26/17 12:00 08/26/17 12:00 08/26/17 12:00 Vital Signs Reviewed: Yes Appearance: Positive: Well-Appearing Skin: Positive: Warm, Dry Head/Face: Positive: Normal Head/Face Inspection Eyes: Positive: Normal, EOMI, HUE, Conjunctiva Clear ENT: Positive: Normal ENT inspection, Pharynx normal, TMs normal Respiratory/Lung Sounds: Positive: Clear to Auscultation, Breath Sounds Present , Other - reproducible chest pain on left side chest Cardiovascular: Positive: Normal, RRR Abdomen Description: Positive: Nontender, Soft Bowel Sounds: Positive: Present Musculoskeletal: Positive: Normal Neurological: Positive: Normal Psychiatric: Positive: Normal Diagnostics - Vital Signs Vital Signs Temp Pulse Resp BP Pulse Ox 08/26/17 12:00 97.7 F 67 18 101/35 100 - Laboratory Lab Statement: Any lab studies that have been ordered have been reviewed, and results considered in the medical decision making process. - EKG No standard instances Cardiac Rate: NL EKG Rhythm: Sinus Rhythm EKG Interpretation: sinus rhythm, early repolarization Chest Pain Course/Dx - Course Course Of Treatment: 37F presents with chest pain for the past day. She has history of COPD, pleurisy, and bronchitis. She is a smoker. She admits to SOB. She also admits to occasionally palpations due to a heart murmur. She denies any cough or recent illness. The pain is burning/sharp pain located on the side lateral left chest. She states feels similar to her pleurisy pain but is in a different location. She states she tried deep breathing but it did not help. no change with position changes. no change with food. no rash. no fever. she states may have swelling in her lower legs but no pain. She states the pain is constant. She denies any abdominal pain, nausea or vomiting. She has a family history of cardiac disease. has not tried anything for her symptoms. She is not on any control. no recent travel. on exam lungs CTA. heart RRR. EKG shows early repolarization. pain is reproducible. discussed with patient with risk factors of COPD and smoker that believe would benefit from futher work up at ED although pain make be muscular. - Chest Pain Differential Diagnosis/HQI/PQRI: Angina, Chest Wall, Pulmonary Embolism - Diagnoses Provider Diagnoses: Chest pain Discharge - Sign-Out/Discharge Documenting (check all that apply): Discharge/Admit/Transfer - Discharge Plan Condition: Stable Disposition: HOME Patient Education Materials: Chest Pain (ED) Referrals: Oni Martínez MD [Primary Care Provider] - Additional Instructions: It is advised that you go to the ED for further evaluation of your chest pain - Billing Disposition and Condition Condition: STABLE Disposition: HOME
== END 2017-08-26 12:25 | disposition home or self-care (01) ==
LOC: UCEAST 11:53
DX: R07.9 Chest pain, unspecified (principal); R00.2 Palpitations; R01.1 Cardiac murmur, unspecified; J44.9 Chronic obstructive pulmonary disease, unspecified; F17.210 Nicotine dependence, cigarettes, uncomplicated; Z82.49 Family history of ischemic heart disease and other diseases of the circulatory system; Z88.5 Allergy status to narcotic agent
CPT/HCPCS: 93005; 99212; G0463

== ENCOUNTER 2017-08-26 12:47 | Emergency (ER) | payer OTHER ==
[2017-08-26 14:21] LABS: ABS Basophils 0.1 10^3/ul (0-0.2); ABS Eosinophils 0.2 10^3/ul (0-0.6); ABS Lymphocytes 2.4 10^3/ul (1.0-4.8); ABS Monocytes 0.4 10^3/ul (0-0.8); ABS Neutrophils 5.1 10^3/ul (1.5-7.7); ABS Nucleated RBC 0 10^3/ul; Eosinophil % 2.3 % (0-6); Hematocrit 44 % (35-47); Lymphocyte % 29.3 % (25-47); Mean Corpuscular HGB Conc 34 g/dl (31-36); Mean Corpuscular Hemoglobin 32 pg (27-31); Mean Corpuscular Volume 92 fL (80-97); Nucleated Red Blood Cells % 0; Platelet Count 239 10^3/ul (150-450); Red Blood Count 4.73 10^6/ul (4.0-5.4); Red Cell Distribution Width 14 % (10.5-15); White Blood Count 8.2 10^3/ul (3.5-10.8)
--- NOTE | 2017-08-26 14:21 | RAD ---
Indication: Chest pain. COPD. Comparison: June 24, [address] and January 07, [address] Technique: Upright AP 1357 hours Report: Clear lungs and pleural spaces. Negative for pneumothorax. The heart, pulmonary vasculature, and mediastinal contours are unremarkable. Unremarkable osseous structures and soft tissue contours. IMPRESSION: No evidence for acute intrathoracic disease.
[2017-08-26 14:46] LABS: EGFR Non-African American 100.8 (>60)
[2017-08-26 16:58] LABS: Urine Appearance Cloudy; Urine Blood Negative (Negative); Urine Color Yellow; Urine Ketones Negative (Negative); Urine Protein Negative (Negative); Urine Urobilinogen Negative (Negative)
[2017-08-26] MEDS ORDERED: Ketorolac INJ* 30 MG/ML 1 ML VIAL IV PUSH ONE (17:29)
[2017-08-26 17:47] VITALS: BP 117/50
--- NOTE | 2017-08-26 18:02 | ED ---
Wil Mitchell Gabriel, scribed for Tanner Silva MD on 08/26/17 at 1459 . HPI Chest Pain - HPI Summary HPI Summary: This patient is a 37 year old F presenting to [facility] c/o burning left sided CP that began last night at 2100. The patient rates the pain 3/10 in severity. Patient reports intermittent SOB. Hx COPD. Pt smokes PPD. Father had MS at 58 , grandfather had 6. - History of Current Complaint Chief Complaint: EDChestPainROMI Time Seen by Provider: 08/26/17 13:14 Hx Obtained From: Patient Hx Last Menstrual Period: 06/09/17 Onset/Duration: Started Days Ago - 1, Still Present Time of Onset: 21:00 Timing: Constant Initial Severity: Mild Current Severity: Mild Pain Intensity: 3 Pain Scale Used: 0-10 Numeric Chest Pain Location: Left Anterior Character: Burning Associated Signs and Symptoms: Positive: Other: - SOB - Additional Pertinent History Primary Care Physician: PEDRO - Allergy/Home Medications Allergies/Adverse Reactions: Allergies Allergy/AdvReac Type Severity Reaction Status Date / Time hydromorphone [From Dilaudid] Allergy swelling Verified 08/26/17 12:56 at IV site morphine Allergy Swelling Verified 08/26/17 12:56 propoxyphene Allergy Rash And Verified 08/26/17 12:56 [From Darvocet-N] Itching PMH/Surg Hx/FS Hx/Imm Hx Endocrine/Hematology History: Denies: Hx Anticoagulant Therapy, Hx Diabetes, Hx Thyroid Disease, Other Endocrine/Hematological Disorders Cardiovascular History: Reports: Other Cardiovascular Problems/Disorders - heart murmur as a child. Denies: Hx Hypertension Respiratory History: Reports: Hx Chronic Obstructive Pulmonary Disease (COPD) - emphysema, Other Respiratory Problems/Disorders - pleurisy Denies: Hx Asthma GI History: Denies: Hx Ulcer, Other GI Disorders History: Reports: Hx Kidney Stones, Hx Renal Disease, Other Problems/ Disorders - Renal stents, dermoid cysts Musculoskeletal History: Reports: Hx Back Problems Denies: Other Musculoskeletal History Sensory History: Reports: Hx Contacts or Glasses Denies: Other Sensory Impairments Opthamlomology History: Reports: Hx Contacts or Glasses Denies: Other Sensory Impairments Neurological History: Reports: Hx Migraine Denies: Hx Dementia, Other Neuro Impairments/Disorders Psychiatric History: Reports: Hx Anxiety, Hx Depression, Hx Community Mental Health Tx, Hx Bipolar Disorder, Hx of Violent Episodes Against Others, Hx Substance Abuse - amphetamine (crystal meth) Denies: Hx Eating Disorder, Other Psychiatric Issues/Disorders - Cancer History Cancer Type, Location and Year: n/a - Surgical History Surgery Procedure, Year, and Place: Kidney Stone surg; dermoid cysyt. [place] Te[facility] 09/2013. Tubal Ligation. Multiple Teeth Extracted Hx Anesthesia Reactions: No Infectious Disease History: No Infectious Disease History: Denies: Hx Hepatitis, Hx Human Immunodeficiency Virus (HIV), History Other Infectious Disease, Traveled Outside the [place] in Last 30 Days - Family History Known Family History: Positive: Cardiac Disease - Paternal grandfather with heart attacks (paternal), at 63, Hypertension, Diabetes, Renal Disease, Other - CVA, hyperlipidemia, CA Family History: Anxiety, bipolar d/o, depression - Social History Alcohol Use: Occasionally Hx Substance Use: No Substance Use Type: Reports: None Substance Use Comment - Amount & Last Used: over a month no drug use Hx Tobacco Use: Yes Smoking Status (MU): Heavy Every Day Tobacco Smoker Type: Cigarettes Amount Used/How Often: 1/2 ppd Length of Time of Smoking/Using Tobacco: 19 YEARS Have You Smoked in the Last Year: Yes Review of Systems Positive: Chest Pain Positive: Shortness Of Breath Negative: Rash All Other Systems Reviewed And Are Negative: Yes Physical Exam - Summary Physical Exam Summary: VITAL SIGNS: Reviewed. GENERAL: Patient is a well-developed and nourished (MALE OR FEMALE) who is lying comfortable in the stretcher. Patient is not in any acute respiratory distress. HEAD AND FACE: No signs of trauma. No ecchymosis, hematomas or skull depressions. No sinus tenderness. EYES: PERRLA, EOMI x 2, No injected conjunctiva, no nystagmus. EARS: Hearing grossly intact. Ear canals and tympanic membranes are within normal limits. MOUTH: Oropharynx within normal limits. NECK: Supple, trachea is midline, no adenopathy, no JVD, no carotid bruit, no c- spine tenderness, neck with full ROM. CHEST: TTP in the left side of his chest around the mid axillary region LUNGS: Clear to auscultation bilaterally. No wheezing or crackles. CVS: Regular rate and rhythm, S1 and S2 present, no murmurs or gallops appreciated. ABDOMEN: Soft, non-tender. No signs of distention. No rebound no guarding, and no masses palpated. Bowel sounds are normal. EXTREMITIES: FROM in all major joints, no edema, no cyanosis or clubbing. NEURO: Alert and oriented x 3. No acute neurological deficits. Speech is normal and follows commands. SKIN: Dry and warm, no rashes Triage Information Reviewed: Yes Vital Signs On Initial Exam: Initial Vitals Temp Pulse Resp BP Pulse Ox 97.1 F 77 18 115/53 98 08/26/17 12:50 08/26/17 12:50 08/26/17 12:50 08/26/17 12:50 08/26/17 12:50 Vital Signs Reviewed: Yes Diagnostics - Vital Signs Vital Signs Temp Pulse Resp BP Pulse Ox 08/26/17 14:23 58 21 106/56 100 08/26/17 12:50 97.1 F 77 18 115/53 98 - Laboratory Lab Results: Lab Results 08/26/17 08/26/17 08/26/17 Range/Units 14:14 14:14 14:14 WBC 8.2 (3.5-10.8) 10^3/ul RBC 4.73 (4.0-5.4) 10^6/ul Hgb 15.0 (12.0-16.0) g/dl Hct 44 (35-47) % MCV 92 (80-97) fL MCH 32 H (27-31) pg MCHC 34 (31-36) g/dl RDW 14 (10.5-15) % Plt Count 239 (150-450) 10^3/ul MPV 7.0 L (7.4-10.4) um3 Neut % (Auto) 62.8 (38-83) % Lymph % (Auto) 29.3 (25-47) % [place] % (Auto) 4.6 (0-7) % Eos % (Auto) 2.3 (0-6) % Baso % (Auto) 1.0 (0-2) % Absolute Neuts (auto) 5.1 (1.5-7.7) 10^3/ul Absolute Lymphs (auto) 2.4 (1.0-4.8) 10^3/ul Absolute Monos (auto) 0.4 (0-0.8) 10^3/ul Absolute Eos (auto) 0.2 (0-0.6) 10^3/ul Absolute Basos (auto) 0.1 (0-0.2) 10^3/ul Absolute Nucleated RBC 0 10^3/ul Nucleated RBC % 0 APTT 30.8 (26.0-36.3) seconds Sodium 140 (139-145) mmol/L Potassium 4.2 (3.5-5.0) mmol/L Chloride 108 (101-111) mmol/L Carbon Dioxide 26 (22-32) mmol/L Anion Gap 6 (2-11) mmol/L BUN 10 (6-24) mg/dL Creatinine 0.66 (0.51-0.95) mg/dL Est GFR ( Amer) 129.6 (>60) Est GFR (Non-Af Amer) 100.8 (>60) BUN/Creatinine Ratio 15.2 (8-20) Glucose 93 (70-100) mg/dL Lactic Acid (0.5-2.0) mmol/L Calcium 9.5 (8.6-10.3) mg/dL Magnesium 2.0 (1.9-2.7) mg/dL Total Bilirubin 0.40 (0.2-1.0) mg/dL AST 11 L (13-39) U/L ALT 6 L (7-52) U/L Alkaline Phosphatase 53 (34-104) U/L Total Creatine Kinase 39 (10-223) U/L CK-MB (CK-2) 0.8 (0.6-6.3) ng/mL Troponin I 0.00 (<0.04) ng/mL B-Natriuretic Peptide ( - 100) pg/mL Total Protein 7.5 (6.4-8.9) g/dL Albumin 4.7 (3.2-5.2) g/dL Globulin 2.8 (2-4) g/dL Albumin/Globulin Ratio 1.7 (1-3) TSH Pending 08/26/17 08/26/17 Range/Units 14:14 14:14 WBC (3.5-10.8) 10^3/ul RBC (4.0-5.4) 10^6/ul Hgb (12.0-16.0) g/dl Hct (35-47) % MCV (80-97) fL MCH (27-31) pg MCHC (31-36) g/dl RDW (10.5-15) % Plt Count (150-450) 10^3/ul MPV (7.4-10.4) um3 Neut % (Auto) (38-83) % Lymph % (Auto) (25-47) % [place] % (Auto) (0-7) % Eos % (Auto) (0-6) % Baso % (Auto) (0-2) % Absolute Neuts (auto) (1.5-7.7) 10^3/ul Absolute Lymphs (auto) (1.0-4.8) 10^3/ul Absolute Monos (auto) (0-0.8) 10^3/ul Absolute Eos (auto) (0-0.6) 10^3/ul Absolute Basos (auto) (0-0.2) 10^3/ul Absolute Nucleated RBC 10^3/ul Nucleated RBC % APTT (26.0-36.3) seconds Sodium (139-145) mmol/L Potassium (3.5-5.0) mmol/L Chloride (101-111) mmol/L Carbon Dioxide (22-32) mmol/L Anion Gap (2-11) mmol/L BUN (6-24) mg/dL Creatinine (0.51-0.95) mg/dL Est GFR ( Amer) (>60) Est GFR (Non-Af Amer) (>60) BUN/Creatinine Ratio (8-20) Glucose (70-100) mg/dL Lactic Acid 0.8 (0.5-2.0) mmol/L Calcium (8.6-10.3) mg/dL Magnesium (1.9-2.7) mg/dL Total Bilirubin (0.2-1.0) mg/dL AST (13-39) U/L ALT (7-52) U/L Alkaline Phosphatase (34-104) U/L Total Creatine Kinase (10-223) U/L CK-MB (CK-2) (0.6-6.3) ng/mL Troponin I (<0.04) ng/mL B-Natriuretic Peptide 11 ( - 100) pg/mL Total Protein (6.4-8.9) g/dL Albumin (3.2-5.2) g/dL Globulin (2-4) g/dL Albumin/Globulin Ratio (1-3) TSH Result Diagrams: 08/26/17 14:14 08/26/17 14:14 Lab Statement: Any lab studies that have been ordered have been reviewed, and results considered in the medical decision making process. - Radiology CXR Radiology Interpretation Completed By: Radiologist - EKG 1254 Cardiac Rate: NL EKG Rhythm: Sinus Rhythm - at 63 BPM EKG Interpretation: NO ST elevations Chest Pain Course/Dx - Course Assessment/Plan: 37-year-old female who presents to the emergency room with a chief complaint having chest pain. Patient reports that the pain is a burning pain and is intermittent. There is nauseated symptoms. She denies any relieving or worsening triggers. Blood work is without any significant abnormality except for increased LFTs. Two Troponins 4 hours apart are 0.00. Patient was given Tylenol and the symptoms improved. Therefore I have no suspicion for acute cord syndrome or PE since the patient doesnt have any tachycardia or hypoxia. I discussed all the findings and test results with the patient. Patient was instructed to return to the emergency room immediately if any of the symptoms return or worsens. Plan of care was discussed with the patient and understands and agrees. All questions were answered at patient satisfaction. There were no further complaints or concerns. Lung exam before discharge: CTA B/L. Good air exchange. No wheezing or crackles heard. CVS: S1 and S2 present. No murmurs appreciated. Patient is alert and oriented x 3. Patient is hemodynamically stable. Patient will be discharged home with follow up PCP in the next 2-3 days - Chest Pain Differential Diagnosis/HQI/PQRI: ACS, Angina, CHF, Chest Wall, GI Disease, Lower Respiratory Infection - Diagnoses Provider Diagnoses: Chest pain Discharge - Sign-Out/Discharge Documenting (check all that apply): Discharge/Admit/Transfer - Discharge Plan Condition: Stable Disposition: HOME Patient Education Materials: Chest Pain (ED) Referrals: Oni Martínez MD [Primary Care Provider] - Additional Instructions: FOLLOW UP WITH YOUR PRIMARY CARE PHYSICIAN IN ONE WEEK. RETURN TO THE EMERGENCY DEPARTMENT FOR ANY NEW OR WORSENING SYMPTOMS. The documentation as recorded by the Wil rodas Gabriel accurately reflects the service I personally performed and the decisions made by , Tanner Silva MD.
== END 2017-08-26 17:46 | disposition home or self-care (01) ==
LOC: ED 12:47
DX: R07.9 Chest pain, unspecified (principal); R94.5 Abnormal results of liver function studies; J44.9 Chronic obstructive pulmonary disease, unspecified; I25.2 Old myocardial infarction; F17.210 Nicotine dependence, cigarettes, uncomplicated; Z88.5 Allergy status to narcotic agent
CPT/HCPCS: 36415; 71045; 80053; 81003; 82550; 82553; 83605; 83735; 83880; 84443; 84484; 85025; 85730; 93005; 96374; 99283; J1885

== ENCOUNTER 2017-09-30 12:28 | Emergency (ER) | payer OTHER ==
[2017-09-30 12:39] VITALS: BP 108/51
--- NOTE | 2017-09-30 13:59 | UC ---
Wil Mitchell Gabriel, scribed for Ethan Owens MD on 09/30/17 at 1252 . Throat Pain/Nasal Patrice HPI - HPI Summary HPI Summary: This patient is a 37 year old F presenting [place] [facility] [place] with a chief complaint of a sore throat and bilateral ear pain that began one day ago. The patient rates the pain 8/10 in severity. Patient reports fever, chills, fatigue, and hoarse voice. Patient denies nasal discharge, chest congestion, neck pain, and cough. - History of Current Complaint Chief Complaint: UCRespiratory Stated Complaint: THROAT COMPLAINT Time Seen by Provider: 09/30/17 12:42 Hx Obtained From: Patient Hx Last Menstrual Period: now Onset/Duration: Lasting Days - 1, Still Present Severity: Severe Pain Intensity: 8 Pain Scale Used: 0-10 Numeric Cough: None Associated Signs & Symptoms: Positive: Hoarseness, Other - fatigue. Negative: Nasal Discharge - Allergies/Home Medications Allergies/Adverse Reactions: Allergies Allergy/AdvReac Type Severity Reaction Status Date / Time hydromorphone [From Dilaudid] Allergy swelling Verified 09/30/17 12:40 at IV site morphine Allergy Swelling Verified 09/30/17 12:40 propoxyphene Allergy Rash And Verified 09/30/17 12:40 [From Darvocet-N] Itching PMH/Surg Hx/FS Hx/Imm Hx Cardiovascular History: Hypertension Respiratory History: COPD Psychological History: Anxiety, Depression Other History Of: Negative For: Anticoagulant Therapy - Surgical History Surgical History: Yes Surgery Procedure, Year, and Place: Kidney Stone surg; dermoid cysyt. [place] [facility] 09/2013. Tubal Ligation. Multiple Teeth Extracted - Family History Known Family History: Positive: Cardiac Disease - Paternal grandfather with heart attacks (paternal), at 63, Hypertension, Diabetes, Renal Disease, Other - CVA, hyperlipidemia, CA Family History: Anxiety, bipolar d/o, depression - Social History Alcohol Use: Occasionally Substance Use Type: None Substance Use Comment - Amount & Last Used: over a month no drug use Smoking Status (MU): Heavy Every Day Tobacco Smoker Type: Cigarettes Amount Used/How Often: 1/2 ppd Length of Time of Smoking/Using Tobacco: 19 YEARS Have You Smoked in the Last Year: Yes Household Exposure Type: Cigarettes - Immunization History Most Recent Influenza Vaccination: Feb 2013 Most Recent Tetanus Shot: current Most Recent Pneumonia Vaccination: unsure Review of Systems Constitutional: Fever, Chills, Fatigue ENT: Sore Throat, Ear Ache, Other - hoarse voice, All Other Systems Reviewed And Are Negative: Yes Physical Exam - Summary Physical Exam Summary: General: well-appearing, no pain distress Skin: warm, color reflects adequate perfusion, dry Head: normal Eyes: EOMI, HUE ENT: positive rhinorrhea, positive anterior cervical lymphadenopathy, tonsils are 2+, mild pharyngitis Neck: supple, nontender Respiratory: CTA, breath sounds present Cardiovascular: RRR Abdomen: soft, nontender Bowel: present Musculoskeletal: normal, strength/ROM intact Neurological: sensory/motor intact, A&O x3 Psychological: affect/mood appropriate Triage Information Reviewed: Yes Vital Signs: Initial Vital Signs Temp 98.2 F 09/30/17 12:37 Pulse 71 09/30/17 12:37 Resp 12 09/30/17 12:37 BP 108/51 09/30/17 12:37 Pulse Ox 100 09/30/17 12:37 Vital Signs Reviewed: Yes Throat Pain/Nasal Course/Dx - Course Course Of Treatment: DISCUSSED DOING A STREP TEST AND VIRAL VERSES BACTERIAL INFECTION WITH THE PATIENT. SHE DECLINED THE STREP TEST, REQUESTS ABX RX. F/U PMD; RECHECK SOONER IF WORSE. Assessment/Plan: Medications reviewed. Allergies noted. - Differential Dx/Diagnosis Provider Diagnoses: tonsillitis. laryngitis Discharge - Sign-Out/Discharge Documenting (check all that apply): Discharge/Admit/Transfer - Discharge Plan Condition: Stable Disposition: HOME Prescriptions: Amoxicillin/Clavulanate TAB* [Augmentin TAB 875*] 875 mg PO BID #20 tab Patient Education Materials: Laryngitis (ED), Tonsillitis (ED) Referrals: Oni Martínez MD [Primary Care Provider] - Additional Instructions: FOLLOW UP WITH YOUR DOCTOR. GET RECHECKED FOR ANY WORSENING OF YOUR CONDITION OR QUESTIONS OR CONCERNS. - Billing Disposition and Condition Condition: STABLE Disposition: Home The documentation as recorded by the Wil rodas Gabriel accurately reflects the service I personally performed and the decisions made by me, Ethan Owens MD.
== END 2017-09-30 13:01 | disposition home or self-care (01) ==
LOC: UCEAST 12:28
DX: J03.90 Acute tonsillitis, unspecified (principal); F17.210 Nicotine dependence, cigarettes, uncomplicated; J04.0 Acute laryngitis; I10 Essential (primary) hypertension; J44.9 Chronic obstructive pulmonary disease, unspecified; Z88.5 Allergy status to narcotic agent
CPT/HCPCS: 99212; G0463

== ENCOUNTER 2018-03-12 10:32 | Emergency (ER) | payer OTHER ==
--- NOTE | 2018-03-12 10:45 | ED ---
Abdominal Pain/Female - HPI Summary HPI Summary: This patient is a 37 year old F presenting to [facility] accompanied by her friend with a chief complaint of intermittent sharp epigastric pain for the past three days. Her friend describes her as crying and curled over when she is in pain. Pain worsens with eating and is worse at night. Patient reports frequent urination. Patient denies any vomiting. Patient denies current pain. Past abdominal surgeries include kidney stone removal and tubal ligation. - History of Current Complaint Stated Complaint: ABD PAIN Time Seen by Provider: 03/12/18 10:35 Hx Obtained From: Patient, Family/Power Crane Operator ?: No Onset/Duration: Lasting Days Timing: Intermittent Episode Lasting Pain Intensity: 0 Pain Scale Used: 0-10 Numeric Location: Epigastric Character: Sharp Aggravating Factor(s): Food Associated Signs and Symptoms: Positive: Urinary Symptoms. Negative: Vomiting Allergies/Adverse Reactions: Allergies Allergy/AdvReac Type Severity Reaction Status Date / Time hydromorphone [From Dilaudid] Allergy swelling Verified 09/30/17 12:40 at IV site morphine Allergy Swelling Verified 09/30/17 12:40 propoxyphene Allergy Rash And Verified 09/30/17 12:40 [From Darvocet-N] Itching PMH/Surg Hx/FS Hx/Imm Hx Endocrine/Hematology History: Denies: Hx Anticoagulant Therapy, Hx Diabetes, Hx Thyroid Disease, Other Endocrine/Hematological Disorders Cardiovascular History: Reports: Other Cardiovascular Problems/Disorders - heart murmur as a child. Denies: Hx Hypertension Respiratory History: Reports: Hx Chronic Obstructive Pulmonary Disease (COPD), Other Respiratory Problems/Disorders - pleurisy Denies: Hx Asthma GI History: Denies: Hx Ulcer, Other GI Disorders History: Reports: Hx Kidney Stones, Hx Renal Disease, Other Problems/ Disorders - Renal stents, dermoid cysts Musculoskeletal History: Reports: Hx Back Problems Denies: Other Musculoskeletal History Sensory History: Reports: Hx Contacts or Glasses Denies: Other Sensory Impairments Opthamlomology History: Reports: Hx Contacts or Glasses Denies: Other Sensory Impairments Neurological History: Reports: Hx Migraine Denies: Hx Dementia, Other Neuro Impairments/Disorders Psychiatric History: Reports: Hx Anxiety, Hx Depression, Hx Community Mental Health Tx, Hx Bipolar Disorder, Hx of Violent Episodes Against Others, Hx Substance Abuse - amphetamine (crystal meth) Denies: Hx Eating Disorder, Other Psychiatric Issues/Disorders - Cancer History Cancer Type, Location and Year: n/a - Surgical History Surgery Procedure, Year, and Place: Kidney Stone surg; dermoid cysyt. [place] Te[facility] 09/2013. Tubal Ligation. Multiple Teeth Extracted Hx Anesthesia Reactions: No Infectious Disease History: No Infectious Disease History: Denies: Hx Hepatitis, Hx Human Immunodeficiency Virus (HIV), History Other Infectious Disease, Traveled Outside the [place] in Last 30 Days - Family History Known Family History: Positive: Cardiac Disease - Paternal grandfather with heart attacks (paternal), at 63, Hypertension, Diabetes, Renal Disease, Other - CVA, hyperlipidemia, CA Family History: Anxiety, bipolar d/o, depression - Social History Alcohol Use: Occasionally Hx Substance Use: No Substance Use Type: Reports: None Substance Use Comment - Amount & Last Used: over a month no drug use Hx Tobacco Use: Yes Smoking Status (MU): Heavy Every Day Tobacco Smoker Type: Cigarettes Amount Used/How Often: 1/2 ppd Length of Time of Smoking/Using Tobacco: 19 YEARS Have You Smoked in the Last Year: Yes Review of Systems Negative: Fever Positive: Abdominal Pain. Negative: Vomiting Positive: frequency All Other Systems Reviewed And Are Negative: Yes Physical Exam - Summary Physical Exam Summary: Appearance: Well-appearing, Well-nourished, lying in bed comfortably Skin: Warm, dry, no obvious rash Eyes: sclera anicteric, no conjunctival pallor ENT: mucous membranes moist, pharynx appears normal Neck: Supple, nontender Respiratory: Clear to auscultation, no signs of respiratory distress Cardiovascular: Normal S1, S2. No murmurs. Normal distal pulses in tibial and radial bilaterally. Abdomen: Soft, Epigastric tenderness, normal active bowel sounds present, No peritoneal signs Musculoskeletal: Normal, Strength/ROM Intact Neurological: A&Ox3, awake and alert, mentation is normal, speech is fluent and appropriate Psychiatric: affect is normal, does not appear anxious or depressed Triage Information Reviewed: Yes Vital Signs On Initial Exam: Initial Vitals Temp Pulse Resp BP Pulse Ox 97.9 F 73 16 116/46 100 03/12/18 10:32 03/12/18 10:32 03/12/18 10:32 03/12/18 10:32 03/12/18 10:32 Vital Signs Reviewed: Yes Diagnostics - Vital Signs Vital Signs Temp Pulse Resp BP Pulse Ox 03/12/18 10:32 97.9 F 73 16 116/46 100 - Laboratory Result Diagrams: 03/12/18 10:50 03/12/18 10:50 Lab Statement: Any lab studies that have been ordered have been reviewed, and results considered in the medical decision making process. - Additional Comments Diagnostic Additional Comments: A Gallbladder US reveals, as per radiologist: No evidence of cholelithiasis or biliary duct dilatation is noted. Abdominal Pain Fem Course/Dx - Course Course Of Treatment: 37 year old F presenting with intermittent sharp epigastric pain for the past three days. Her friend describes her as crying and curled over when she is in pain. Pain worsens with eating and is worse at night. Patient denies current pain. Patient has right upper quadrant tenderness on exam. Bloodwork and chemistry ordered and is unremarkable. Lipase is not elevated. UA is unremarkable. A gallbladder US is unremarkable. Specifically there is no sign of cholecystitis nor any cholelithiasis. Patient presentation is consistent with gallbladder disease; however workup is unremarkable. At, 12:08, Dr. Perez (surgery) is consulted and suggests discharge as labwork and ultrasound do not demonstrate any disease. I also spoke with the patient's primary care provider, Dr. Martínez, to inform him of my suspicions regarding acalculous cholecystitis. He will make the appropriate follow-up referrals and tests. Patient's PCP, Dr. Martínez, is called to inform him of patients visit and potential need for further testing on an outpatient basis. Dr. Martínez agrees to write an outpatient follow-up. Patient will be dischared. Patient is agreeable with this plan. - Diagnoses Provider Diagnoses: Acute abdominal pain in right upper quadrant - Provider Notifications Discussed Care Of Patient With: Jazzy Perez - surgery Time Discussed With Above Provider: 12:08 Instructed by Provider To: Other - Workup is not indicative of gallbladder disease. Patient can be discharged. Discharge - Sign-Out/Discharge Documenting (check all that apply): Patient Departure - Discharge Plan Condition: Good Disposition: HOME Prescriptions: Omeprazole CAP* [Prilosec CAP* 20 MG] 20 mg PO DAILY #20 alex. Patient Education Materials: Biliary Colic (ED) Referrals: Oni Martínez MD [Primary Care Provider] - - Billing Disposition and Condition Condition: GOOD Disposition: Home - Attestation Statements Document Initiated by Scribe: Yes Documenting Scribe: Ambika Ahuja Provider For Whom Jessica is Documenting (Include Credential): Joselo Ruff MD Scribe Attestation: I, Ambika Ahuja, scribed for Joselo Ruff MD on 03/12/18 at 1540. Scribe Documentation Reviewed: Yes Provider Attestation: The documentation as recorded by the Ambika rodas accurately reflects the service I personally performed and the decisions made by me, Joselo Ruff MD Status of Scribe Document: Viewed
[2018-03-12 11:11] LABS: ABS Basophils 0.1 10^3/ul (0-0.2); ABS Eosinophils 0.2 10^3/ul (0-0.6); ABS Lymphocytes 1.9 10^3/ul (1.0-4.8); ABS Monocytes 0.4 10^3/ul (0-0.8); ABS Neutrophils 5.5 10^3/ul (1.5-7.7); ABS Nucleated RBC 0 10^3/ul; Eosinophil % 2.6 %; Hematocrit 43 % (35-47); Hemoglobin 14.5 g/dl (12.0-16.0); Lymphocyte % 23.1 %; Mean Corpuscular HGB Conc 34 g/dl (31-36); Mean Corpuscular Hemoglobin 32 pg (27-31); Mean Corpuscular Volume 94 fL (80-97); Mean Platelet Volume 7.2 fL (7.4-10.4); Nucleated Red Blood Cells % 0; Platelet Count 247 10^3/ul (150-450); Red Blood Count 4.58 10^6/ul (4.00-5.40); Red Cell Distribution Width 13 % (10.5-15); White Blood Count 8.1 10^3/ul (3.5-10.8)
[2018-03-12 11:31] LABS: EGFR Non-African American 104.4 (>60)
[2018-03-12] MEDS ORDERED: Omeprazole CAP* 20 MG PO ONE (12:32)
[2018-03-12 12:49] VITALS: BP 100/61
--- NOTE | 2018-03-12 16:09 | ED ---
Progress - Progress Note Progress Note: Clarification regarding consultation by Dr. Perez, this was a telephone consultation only. Dr. Perez provided guidance that is appreciated but I did not feel that she needed to see the patient in the ED. Course/Dx - Course Course Of Treatment: 37 year old F presenting with intermittent sharp epigastric pain for the past three days. Her friend describes her as crying and curled over when she is in pain. Pain worsens with eating and is worse at night. Patient denies current pain. Patient has right upper quadrant tenderness on exam. Bloodwork and chemistry ordered and is unremarkable. Lipase is not elevated. UA is unremarkable. A gallbladder US is unremarkable. Specifically there is no sign of cholecystitis nor any cholelithiasis. Patient presentation is consistent with gallbladder disease; however workup is unremarkable. At, 12:08, Dr. Perez (surgery) is consulted and suggests discharge as labwork and ultrasound do not demonstrate any disease. I also spoke with the patient's primary care provider, Dr. Martínez, to inform him of my suspicions regarding acalculous cholecystitis. He will make the appropriate follow-up referrals and tests. Patient's PCP, Dr. Martínez, is called to inform him of patients visit and potential need for further testing on an outpatient basis. Dr. Martínez agrees to write an outpatient follow-up. Patient will be dischared. Patient is agreeable with this plan. - Diagnoses Provider Diagnoses: Acute abdominal pain in right upper quadrant - Provider Notifications Time Discussed With Above Provider: 12:08 Instructed by Provider To: Other - Workup is not indicative of gallbladder disease. Patient can be discharged. Discharge - Sign-Out/Discharge Documenting (check all that apply): Patient Departure - Discharge Plan Condition: Good Disposition: HOME Prescriptions: Omeprazole CAP* [Prilosec CAP* 20 MG] 20 mg PO DAILY #20 alex. Patient Education Materials: Biliary Colic (ED) Referrals: Oni Martínez MD [Primary Care Provider] - - Billing Disposition and Condition Condition: GOOD Disposition: Home
== END 2018-03-12 12:56 | disposition home or self-care (01) ==
LOC: ED 10:32
DX: R10.11 Right upper quadrant pain (principal); F17.210 Nicotine dependence, cigarettes, uncomplicated; Z88.5 Allergy status to narcotic agent; J44.9 Chronic obstructive pulmonary disease, unspecified
CPT/HCPCS: 36415; 76705; 80053; 83690; 84702; 85025; 99282; A9270-GY

== ENCOUNTER 2018-07-02 14:57 | Emergency (ER) | payer OTHER ==
--- NOTE | 2018-07-02 15:52 | UC ---
Complaint Female HPI - HPI Summary HPI Summary: Ms. Reyes presented with a one day history of pain in the right flank. It is not exacerbated or relieved by any factors and has no associated symptoms. She has a history of kidney stones and UTI's. - History Of Current Complaint Chief Complaint: UCBackPain Stated Complaint: BACK PAIN Time Seen by Provider: 07/02/18 15:41 Hx Obtained From: Patient Hx Last Menstrual Period: [id number] ?: No Onset/Duration: Gradual Onset Timing: Constant Severity Initially: Moderate Severity Currently: Moderate Pain Intensity: 8 Character: Dull Aggravating Factor(s): Nothing Alleviating Factor(s): Nothing Associated Signs And Symptoms: Positive: Negative Related Hx: Similar Episode/Dx as: - Kidney Stone - Allergies/Home Medications Allergies/Adverse Reactions: Allergies Allergy/AdvReac Type Severity Reaction Status Date / Time hydromorphone [From Dilaudid] Allergy swelling Verified 07/02/18 15:22 at IV site morphine Allergy Swelling Verified 07/02/18 15:22 propoxyphene Allergy Rash And Verified 07/02/18 15:22 [From Darvocet-N] Itching PMH/Surg Hx/FS Hx/Imm Hx Previously Healthy: Yes Other History Of: Negative For: Anticoagulant Therapy - Surgical History Surgical History: Yes Surgery Procedure, Year, and Place: Kidney Stone surg; dermoid cysyt. [place] [facility] 09/2013. Tubal Ligation. Multiple Teeth Extracted - Family History Known Family History: Positive: Cardiac Disease - Paternal grandfather with heart attacks (paternal), at 63, Hypertension, Diabetes, Renal Disease, Other - CVA, hyperlipidemia, CA Family History: Anxiety, bipolar d/o, depression - Social History Alcohol Use: Occasionally Substance Use Type: None Substance Use Comment - Amount & Last Used: over a month no drug use Smoking Status (MU): Heavy Every Day Tobacco Smoker Type: Cigarettes Amount Used/How Often: 1/2 ppd Length of Time of Smoking/Using Tobacco: 19 YEARS Have You Smoked in the Last Year: Yes Household Exposure Type: Cigarettes - Immunization History Most Recent Influenza Vaccination: Feb 2013 Most Recent Tetanus Shot: current Most Recent Pneumonia Vaccination: unsure Review of Systems All Other Systems Reviewed And Are Negative: Yes Physical Exam - Summary Physical Exam Summary: She was nontoxic in appearance with stable vital signs. Triage Information Reviewed: Yes Appearance: Well-Appearing Vital Signs: Initial Vital Signs Temp 97.1 F 07/02/18 15:17 Pulse 83 07/02/18 15:17 Resp 20 07/02/18 15:17 BP 100/40 07/02/18 15:17 Pulse Ox 100 07/02/18 15:17 Vital Signs Reviewed: Yes Respiratory Exam: Normal Cardiovascular Exam: Normal Abdominal Exam: Normal Diagnostics - Radiology CT Abd/Pelvis Radiology Interpretation Completed By: Radiologist Summary of Radiographic Findings: 0.2mm Stone in the lower pole of the kidney. No ureterolithiasis or hydronephrosis. Complaint Female Dx - Course Course Of Treatment: Ms. Reyes has an equivocal U/A and a negative CT. I will give her a trial of antibiotics and pyridium. - Differential Dx/Diagnosis Provider Diagnosis: UTI (urinary tract infection) Discharge - Sign-Out/Discharge Documenting (check all that apply): Patient Departure All imaging exams completed and their final reports reviewed: Yes - Discharge Plan Condition: Stable Disposition: HOME Prescriptions: Ciprofloxacin TAB* [Cipro Tab*] 500 mg PO BID #6 tab Phenazopyridine 200 mg (NF) [Pyridium 200 MG tab *] 200 mg PO TID #9 tab Patient Education Materials: Urinary Tract Infection in Women (ED) Referrals: Oni Martínez MD [Primary Care Provider] - Additional Instructions: Please follow up with Dr. Martínez or return here if not completely improved in 1-2 days or if worsening. - Billing Disposition and Condition Condition: STABLE Disposition: Home
[2018-07-02 17:35] VITALS: BP 107/40
== END 2018-07-02 17:30 | disposition home or self-care (01) ==
LOC: UCEAST 14:57
DX: N39.0 Urinary tract infection, site not specified (principal); N20.0 Calculus of kidney; N83.201 Unspecified ovarian cyst, right side; F17.210 Nicotine dependence, cigarettes, uncomplicated; Z87.440 Personal history of urinary (tract) infections; Z87.442 Personal history of urinary calculi; Z88.5 Allergy status to narcotic agent; Z88.6 Allergy status to analgesic agent
CPT/HCPCS: 74176; 81003; 84702; 87077; 87086; 87186; 99212; G0463

== ENCOUNTER 2019-04-11 04:51 | Emergency (ER) | payer OTHER ==
--- NOTE | 2019-04-11 05:02 | ED ---
Abdominal Pain/Female - HPI Summary HPI Summary: This patient is a 38 year old female presenting to [facility] with LLQ pain. She states it started one hour ago. She reports nausea secondary to pain and denies vomiting and diarrhea. She rates her pain 10/10 in severity. Her LNMP was 2 weeks ago. She has a Hx of kidney stones and states the pain feels like this. Laying supine makes the pain worse, patient is laying on her left side on room. - History of Current Complaint Stated Complaint: ABD PAIN PER EMS Hx Obtained From: Patient Hx Last Menstrual Period: [id number] Onset/Duration: Sudden Onset, Lasting Hours Location: Discrete At: LLQ Allergies/Adverse Reactions: Allergies Allergy/AdvReac Type Severity Reaction Status Date / Time hydromorphone [From Dilaudid] Allergy swelling Verified 07/02/18 15:22 at IV site morphine Allergy Swelling Verified 07/02/18 15:22 propoxyphene Allergy Rash And Verified 07/02/18 15:22 [From Darvocet-N] Itching PMH/Surg Hx/FS Hx/Imm Hx Endocrine/Hematology History: Denies: Hx Anticoagulant Therapy, Hx Diabetes, Hx Thyroid Disease, Other Endocrine/Hematological Disorders Cardiovascular History: Reports: Other Cardiovascular Problems/Disorders - heart murmur as a child. Denies: Hx Hypertension Respiratory History: Reports: Hx Chronic Obstructive Pulmonary Disease (COPD), Other Respiratory Problems/Disorders - pleurisy Denies: Hx Asthma GI History: Denies: Hx Ulcer, Other GI Disorders History: Reports: Hx Kidney Stones, Hx Renal Disease, Other Problems/ Disorders - Renal stents, dermoid cysts Musculoskeletal History: Reports: Hx Back Problems Denies: Other Musculoskeletal History Sensory History: Reports: Hx Contacts or Glasses Denies: Other Sensory Impairments Opthamlomology History: Reports: Hx Contacts or Glasses Denies: Other Sensory Impairments Neurological History: Reports: Hx Migraine Denies: Hx Dementia, Other Neuro Impairments/Disorders Psychiatric History: Reports: Hx Anxiety, Hx Depression, Hx Community Mental Health Tx, Hx Bipolar Disorder, Hx of Violent Episodes Against Others, Hx Substance Abuse - amphetamine (crystal meth) Denies: Hx Eating Disorder, Other Psychiatric Issues/Disorders - Cancer History Cancer Type, Location and Year: n/a - Surgical History Surgery Procedure, Year, and Place: Kidney Stone surg; dermoid cysyt. [place] [employer] [facility]eth 09/2013. Tubal Ligation. Multiple Teeth Extracted Hx Anesthesia Reactions: No Infectious Disease History: Denies: Hx Hepatitis, Hx Human Immunodeficiency Virus (HIV), History Other Infectious Disease - Family History Known Family History: Positive: Cardiac Disease - Paternal grandfather with heart attacks (paternal), at 63, Hypertension, Diabetes, Renal Disease, Other - CVA, hyperlipidemia, CA Family History: Anxiety, bipolar d/o, depression - Social History Alcohol Use: Occasionally Hx Substance Use: No Substance Use Type: Reports: None Substance Use Comment - Amount & Last Used: over a month no drug use Hx Tobacco Use: Yes Smoking Status (MU): Heavy Every Day Tobacco Smoker Type: Cigarettes Amount Used/How Often: 1/2 ppd Length of Time of Smoking/Using Tobacco: 19 YEARS Have You Smoked in the Last Year: Yes Review of Systems Negative: Fever Positive: Abdominal Pain, Nausea. Negative: Vomiting, Diarrhea All Other Systems Reviewed And Are Negative: Yes Physical Exam - Summary Physical Exam Summary: General: Well-developed, Well-nourished FEMALE. In mild discomfort. HEENT: Normocephalic, Atraumatic. Eyes: Conjuctiva normal, PERRL. Oropharynx: Clear, mucous membranes moist, (-) exudates. Neck: Soft, FROM, (-) lymphadenopathy, (-) thyromegaly, (-) JVD. Cardiovascular: Normal sinus rhythm, (-) murmur. Lungs: Clear to auscultation bilaterally (-) wheezes, (-) rales, (-) rhonchi. Abdomen: Soft, mild suprapubic tenderness, moderate LLQ tenderness, mild left flank tenderness, non-distended, (-) organomegaly, normal bowel sounds. Back: (-) CVA tenderness Extremities: No edema. Skin: Warm, dry, (-) rash. Neuro: Alert and oriented x3, no focal deficits. Psychiatric: Mood normal, affect normal. Triage Information Reviewed: Yes Vital Signs Reviewed: Yes Procedures - Sedation Patient Received Moderate/Deep Sedation with Procedure: No Diagnostics - Laboratory Result Diagrams: 04/11/19 05:18 04/11/19 05:18 Lab Statement: Any lab studies that have been ordered have been reviewed, and results considered in the medical decision making process. Re-Evaluation - Re-Evaluation First Eval Re-Evaluation Time: 07:09 Comment: Pt reports she has left flank pain radiating down to her left lower quadrant pain rating it 6/10 in severity. Pt has hx of kidney stones and this pain feels similar. She states in the past when she has passed stones she has had pain in her kidneys, but notes there was one time when she had an obstructing stone for which she had to have emergency surgery. Pt is requesting antiemetics and percocet for her pain. Second Eval Re-Evaluation Time: 08:24 Comment: Reviewed CT results with the patient. Abdominal Pain Fem Course/Dx - Course Course Of Treatment: 38 year old female presents from home by ambulance with llq abd pain and hematuria. history of kidney stones. no fevers. pain radiates to left flank. exam shows tenderness llq. treated with toradol, ivfs. labs demonstrate hematuria no uti. patient signed out at change of shift awaiting ct scan results, reevaluation and disposition. - Diagnoses Provider Diagnoses: Hematuria Discharge ED - Sign-Out/Discharge Documenting (check all that apply): Sign-Out Patient Signing out patient TO: José Manuel Mendieta - Pending Non-contrast CT for presumed kidney stone at shift change 0700. - Discharge Plan Disposition: HOME Prescriptions: Ondansetron HCl [Zofran] 4 mg PO Q8HR PRN #12 tablet PRN Reason: Vomiting Patient Education Materials: Hematuria (ED) Referrals: Sara Grubbs MD [Primary Care Provider] - Moo Pichardo MD [Medical Doctor] - Additional Instructions: Take your nausea medications as prescribed. PLEASE RETURN TO EMERGENCY DEPARTMENT FOR WORSENING PAIN, VAGINAL BLEEDING, OR ANY OTHER CONCERNING SYMPTOMS. Please follow up with Dr. Pichardo, urologist, in 1-3 days to have your hematuria evaluated. - Billing Disposition and Condition Disposition: Home - Attestation Statements Document Initiated by Margaretibcirilo: Yes Documenting Scribe: Pasquale Sorenson Provider For Whom Jessica is Documenting (Include Credential): Graciela Barragan MD Scribe Attestation: Pasquale Mitchell, scribed for Graciela Barragan MD on 04/11/19 at 2055. Scribe Documentation Reviewed: Yes Provider Attestation: The documentation as recorded by the Pasquale rodas accurately reflects the service I personally performed and the decisions made by , Graciela Barragan MD Status of Scribe Document: Viewed
[2019-04-11] MEDS ORDERED: Ondansetron INJ* 2 MG/ML VIAL IV ONE ×2 (05:06→07:12)
[2019-04-11] MEDS ORDERED: Ketorolac INJ* 15 MG/ML 1 ML VIAL IM ONE (05:06)
[2019-04-11] MEDS ORDERED: NS 0.9% 1000 ML** 1,000 ML IV ONE (05:06)
[2019-04-11 05:29] LABS: ABS Basophils 0.1 10^3/ul (0-0.2); ABS Eosinophils 0.2 10^3/ul (0-0.6); ABS Lymphocytes 2.3 10^3/ul (1.0-4.8); ABS Monocytes 0.5 10^3/ul (0-0.8); ABS Neutrophils 6.1 10^3/ul (1.5-7.7); Eosinophil % 2.6 %; Hematocrit 42 % (35-47); Hemoglobin 14.3 g/dL (12.0-16.0); Lymphocyte % 24.5 %; Mean Corpuscular HGB Conc 34 g/dL (31-36); Mean Corpuscular Hemoglobin 32 pg (27-31); Mean Corpuscular Volume 93 fL (80-97); Mean Platelet Volume 7.3 fL (7.4-10.4); Platelet Count 273 10^3/uL (150-450); Red Blood Count 4.52 10^6 /uL (3.70-4.87); Red Cell Distribution Width 13 % (10-15); White Blood Count 9.2 10^3/uL (3.5-10.8)
[2019-04-11 05:49] LABS: Albumin 4.3 g/dL (3.2-5.2); Albumin/Globulin Ratio 1.6 (1-3); BUN/Creatinine Ratio 23.8 (8-20); C Reactive Protein 3.71 mg/L (<8.01); Calcium 9.7 mg/dL (8.6-10.3); EGFR Non-African American 105.8 (>60); Globulin 2.7 g/dL (2-4); Total Bilirubin 0.3 mg/dL (0.2-1.0)
[2019-04-11 05:54] LABS: HCG Pregnancy 0.68 mIU/mL
--- OUTSIDE RECORDS SUMMARY | 2019-04-11 06:00 | XMS REPORT | Continuity of Care Document ---
:1980 External Reference #:[id number] Demographics Address 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 [phone] Medicine Lars Gan MD - Obstetrics & Care Team Information Liquid [employer] Operator Gynecology Deneen Collazo MD - Internal Medicine Care Team Information Liquid [employer] Plant Operator Moo Pichardo MD - Urology Care Team Information Liquid Hydro[employer] Plant Operator [phone] Maryann Spicer MD - Pulmonary Care Team Information Liquid [employer] Plant Operator Disease Problems Active Problems Provider Date Solitary nodule of lung Morgan Taveras NP Onset: 02/10/2016 Note: stable RLL nodule on CT Tobacco user Morgan Taveras NP Onset: 02/10/2016 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 Onset: 12/14/2016 Social History Type Date Description Comments Sex Unknown Tobacco Use Start: 04/08/95 Current Cigarette Smoker 1 Pack Daily Smoking Status Reviewed: 03/23/19 Current Cigarette Smoker 1 Pack Daily ETOH Use Drinks Alcoholic Beverages Rarely Recreational Drug Use Denies Drug Use Tobacco Use Start: Unknown Heavy tobacco smoker (more than 10 cigarettes/day) Exercise Type/Frequency Exercises regularly Exercise Type/Frequency Walks 2 times a week Allergies, Adverse Reactions, Alerts Active Allergies Reaction Severity Comments Date Morphine swelling and hives 02/10/2016 Dilaudid swelling 02/10/2016 Medications Active Medications SIG Qnty Indications Ordering Provider Date Flonase Allergy 1 puff nasal 36.400ml R06.00 Herminio Trujillo MD 03/23/2019 Relief twice a day 50mcg/Act Suspension Fluticasone 1 puff by mouth 1units Herminio Trujillo MD 02/11/2019 Propionate/Salmeterol twice a day Diskus 250-50mcg/Dose Aerosol History Medications No Active Unknown 01/22/2019 - Medications 02/11/2019 No Active Unknown 12/23/2018 - Medications 12/23/2018 Symbicort 1 inhalation by 10.200gm R06.00 Herminio Trujillo 12/23/2018 - mouth twice a day 01/22/2019 80-4.5mcg/Act Aerosol Ventolin HFA 2 every 4 hours as 18gm R06.00 Herminio Trujillo 12/23/2018 - needed 01/22/2019 108(90Base) mcg/Act Aerosol Immunizations Description No Information Available Vital Signs Date Vital Result Comment 03/23/2019 9:46am Height 62 inches 5'2" Weight 138.00 lb Heart Rate 74 /min BP Systolic Sitting 110 mmHg Lue reg cuff BP Diastolic Sitting 78 mmHg Lue reg cuff O2 % BldC Oximetry 98 % On Ra BMI (Body Mass Index) 25.2 kg/m2 12/23/2018 11:39am Height 62 inches 5'2" Weight 135.00 lb Heart Rate 82 /min BP Systolic Sitting 114 mmHg Rue reg cuff BP Diastolic Sitting 70 mmHg Rue reg cuff Respiratory Rate 16 /min O2 % BldC Oximetry 98 % On Ra BMI (Body Mass Index) 24.7 kg/m2 Neck Circumference in inches 13 Results Test Acquired Date Facility Test Result H/L Range Note Laboratory test 02/16/2019 [facility] Nuclear AB <1:[address] (Graciela) By Ifa (Negative) [place] [address] Igg [phone] Anti Ssa/Ro <0.2 U 2 Anti SSB LA <0.2 U 3 Alva-1 Antibody <0.2 U 4 Rheumatoid Factor < 10 IU/mL Normal <15 Scleroderma AB 02/16/2019 [facility] Scleroderma Ab <0.2 U 5 (SCL70) [address] [facility] [place] [id number] [phone] Laboratory test 02/16/2019 [facility] Cyclic Citrullinated < 15.6 U [address] [place] [address] [address] Igg [place], [place] [address] [phone] 1 <1:80 (Negative) REFERENCE VALUE <1:80 (Negative) Test Performed by: [facility] [place] [address] Crane Ladle Person: Ethan Singh M.D. Ph.D.; CLIA# [id number] 2 REFERENCE VALUE <1.0 (Negative) Test Performed by: [facility] [place] [address] Crane Ladle Person: Ethan Singh M.D. Ph.D.; CLIA# [id number] 3 REFERENCE VALUE <1.0 (Negative) Test Performed by: [facility] [place] [address] Crane Ladle Person: Ethan Singh M.D. Ph.D.; CLIA# [id number] 4 REFERENCE VALUE <1.0 (Negative) Test Performed by: [facility] [place] [address] Crane Ladle Person: Ethan Singh M.D. Ph.D.; CLIA# [id number] 5 REFERENCE VALUE <1.0 (Negative) Test Performed by: [facility] [place] [id number] [place] [address] Crane Ladle Person: Ethan Singh M.D. Ph.D.; CLIA# [id number] 6 REFERENCE VALUE <20.0 (Negative) Test Performed by: [facility] [place] [id number] [place] [address] Crane Ladle Person: Ethan Singh M.D. Ph.D.; CLIA# [id number] Procedures Date Code Description Status 01/21/2019 85094 Diffusing Capacity Completed 01/21/2019 49243 Plethysmography Determination Lung Volumes & Per Airway Completed Resist 01/21/2019 01982 [facility] Measurement Heart Rate, Completed Oximetry 01/21/2019 46687 Pulmonary Function><Bronchodil Completed 10/14/2018 63159 Plethysmography Determination Lung Volumes & Per Airway Completed Resist 10/14/2018 15227 Pulmonary Function><Bronchodil Completed Medical Devices Description No Information Available Encounters Type Date Location Provider Dx Diagnosis Office Visit 12/23/2018 Pulmonology And Herminio Trujillo MD R06.00 Dyspnea, 11:20a [facility] unspecified Banquet Stewardess Assessments Date Code Description Provider 03/23/2019 R06.00 Dyspnea, unspecified Herminio Trujillo MD 01/21/2019 R06.02 Shortness of breath Maryann Spicer MD 12/23/2018 R06.00 Dyspnea, unspecified Herminio Trujillo MD 10/14/2018 J44.9 Chronic obstructive pulmonary disease, Maryann Spicer MD unspecified Plan of Treatment 03/23/2019 - Herminio Trujillo MDR06.00 Dyspnea, unspecifiedNew Medication:Flonase Allergy Relief 50 mcg/Act - 1 puff nasal twice a dayNew Xrays:CT Chest W/O, Ordered: 03/23/19Comments:She has allergens of smoking daily. She is not willing to quit at this time. We will try to prescribe her Symbicort and also Flonase nasal spray. We will send her to allergy to see if we could find out what she is allergic to. We will also order CT chest for evaluation of the history of lung nodules.Referral:Daron Ingram MD, Allergy & ImmunologyFollow up:2-3 months. Functional Status Description No Information Available Mental Status Description No Information Available Referrals Refer to Dr Reason for Referral Status Appt Date Daron Ingram MD Sent [address] [place] [address] [place] [address] [phone] Maryann Spicer MD Sent 12/23/[address] [place] [address] [phone]
[2019-04-11 06:05] LABS: INR 0.96 (0.82-1.09)
[2019-04-11 06:31] LABS: Urine Appearance Cloudy; Urine Bilirubin Negative (Negative); Urine Blood 1+ (Negative); Urine Color Yellow; Urine Glucose Negative (Negative); Urine Ketones Negative (Negative); Urine Nitrite Negative (Negative); Urine Protein Negative (Negative); Urine Specific Gravity 1.018 (1.010-1.030); Urine Urobilinogen Negative (Negative)
[2019-04-11 06:33] LABS: Urine Bacteria Absent (Absent); Urine Red Blood Cell 2+(6-10/hpf) (Absent); Urine Squamous Epithelial Cell Present (Absent); Urine White Blood Cell Trace(0-5/hpf) (Absent)
--- NOTE | 2019-04-11 07:11 | ED ---
Progress - Progress Note Progress Note: This pt is a sign out from Dr. Barragan to Dr. Mendieta at shift change on at 0700 pending abdomen/pelvis CT. - Results/Orders Results/Orders: Abdomen/Pelvis CT, as read by radiologist IMPRESSION: No obstructive uropathy is noted. Nonobstructing calculi lower pole right kidney. No hydronephrosis is noted. Diverticulosis without definite evidence of diverticulitis. Normal-appearing appendix. Dr. Mendieta has reviewed this report. Re-Evaluation - Re-Evaluation First Eval Re-Evaluation Time: 07:09 Comment: Pt reports she has left flank pain radiating down to her left lower quadrant pain rating it 6/10 in severity. Pt has hx of kidney stones and this pain feels similar. She states in the past when she has passed stones she has had pain in her kidneys, but notes there was one time when she had an obstructing stone for which she had to have emergency surgery. Pt is requesting antiemetics and percocet for her pain. Second Eval Re-Evaluation Time: 08:24 Comment: Reviewed CT results with the patient. Course/Dx - Course Course Of Treatment: Patient is here with left lower quadrant pain and hematuria. Patient has a history of kidney stones. Patient's last evaluation by her car worker helper included a CT scan showed 2 nonobstructing kidney stones. Patient currently has one on CT scan and had blood in her urine. Patient likely passed a kidney stone. Patient was near pain-free by the time of discharge and only had nausea. Patient had no other abnormalities on blood work or her CT scan. - Diagnoses Provider Diagnoses: Hematuria Discharge ED - Sign-Out/Discharge Documenting (check all that apply): Patient Departure - Discharge home, Receiving Sign-Out Receiving patient FROM: Graciela Barragan - Discharge Plan Condition: Stable Disposition: HOME Prescriptions: Ondansetron HCl [Zofran] 4 mg PO Q8HR PRN #12 tablet PRN Reason: Vomiting Patient Education Materials: Hematuria (ED) Referrals: Sara Grubbs MD [Primary Care Provider] - Moo Pichardo MD [Medical Doctor] - Additional Instructions: Take your nausea medications as prescribed. PLEASE RETURN TO EMERGENCY DEPARTMENT FOR WORSENING PAIN, VAGINAL BLEEDING, OR ANY OTHER CONCERNING SYMPTOMS. Please follow up with Dr. Pichardo, urologist, in 1-3 days to have your hematuria evaluated. - Billing Disposition and Condition Condition: STABLE Disposition: Home - Attestation Statements Document Initiated by Scribe: Yes Documenting Scribe: Josie Cardozo Provider For Whom Scribe is Documenting (Include Credential): José Manuel Mendieta MD Scribe Attestation: Josie Mitchell, scribed for José Manuel Mendieta MD on 04/11/19 at 1336. Scribe Documentation Reviewed: Yes Provider Attestation: The documentation as recorded by the Josie rodas accurately reflects the service I personally performed and the decisions made by me, José Manuel Mendieta MD Status of Scribe Document: Viewed
[2019-04-11] MEDS ORDERED: oxyCODONE/Acetamin 5/325 MG* TAB PO ONE (07:13)
[2019-04-11] MEDS ORDERED: Metoclopramide TAB* 10 MG PO ONE (08:22)
[2019-04-11 08:49] VITALS: BP 112/70
== END 2019-04-11 08:38 | disposition home or self-care (01) ==
LOC: ED 04:51
DX: N20.0 Calculus of kidney (principal); Z87.442 Personal history of urinary calculi; K57.30 Diverticulosis of large intestine without perforation or abscess without bleeding; N83.202 Unspecified ovarian cyst, left side; N83.201 Unspecified ovarian cyst, right side; R31.9 Hematuria, unspecified; R10.32 Left lower quadrant pain; R11.0 Nausea; Z88.5 Allergy status to narcotic agent; F17.210 Nicotine dependence, cigarettes, uncomplicated
CPT/HCPCS: 36415; 74176; 80053; 81003; 81015; 83605; 84702; 85025; 85610; 86140; 87077; 87086; 87186; 96361; 96372; 96374; 96376; 99283; A9270-GY; J1885; J2405